=== PATIENT | female | born 1960 | race African-American/Black ===

== ENCOUNTER 2016-04-12 17:49 | Inpatient (IN) | payer MEDICARE, MEDICAID ==
[~2016-04-12] VITALS: Ht 157.5 cm; Wt 99.8 kg
[~2016-04-12 17:49] MED LIST: ACETAMINOP650 MG/20. PO; AMBIEN5 MG; BENADRYL25 MG INJ; BISCOLAX10 MG RC; CATAPRES-TTS 11 EACH TD; CATAPRES0.1 MG ORAL; CLONIDINE0.1 MG PO; HYDRALAZIN20 MG/1 ML IJ; JANUVIA25 MG PO; MORPHINE; NEPHROVITE1 TAB PO; NORCO 5-325 TA1 EACH PO; NORVASC10 MG PO; NOVOLOG100 UNIT/3 SUBQ; PHENERGAN25 MG/1 M1 IJ; RENVELA800 MG ORAL; ZOFRAN4 MG/5 ML INJ
[2016-04-12 18:17] VITALS: BP 119/74
--- NOTE | 2016-04-12 18:43 | Emergency Room Report ---
History of Present Illness General Chief Complaint: Abdominal Pain Source: Patient, Family Member Present Illness HPI 55 YO female presents to the ED C/O N/V and intermittent diarrhea x 2 weeks. pt. is on dialysis M,W,F, with hx of DM. denies fevers, reports chills. reports decreased appetite, has not eaten in 2 days. denies abdominal pain. reports mild weakness. -Denies CP, Palpitations, LOC, AMS, dizziness, Changes in Vision , Sensation, paresthesias, or a sudden severe headache. Allergies: Coded Allergies: NO KNOWN DRUG ALLERGIES (Verified Allergy, Unknown, 10/01/13) Patient History Past Medical History: see triage record Past Surgical History: none Pertinent Family History: none Last Menstrual Period: years Now: No : 0 Immunizations: UTD Reviewed Nursing Documentation: PMH: Agreed, PSxH: Agreed Nursing Documentation-PMH Past Medical History: No History, Except For Hx Cardiac Problems: Yes Hx Hypertension: Yes Hx Diabetes: Yes Hx Cancer: No Hx Gastrointestinal Problems: No Hx Dialysis: Yes Hx Neurological Problems: Yes Hx Concentration Difficulty: Yes Hx Neurologic Surgery: No Review of Systems All Other Systems: negative except mentioned in HPI Physical Exam Vital Signs Date Time Temp Pulse Resp B/P Pulse Ox O2 Delivery O2 Flow Rate FiO2 04/12/16 18:09 97.7 73 14 119/74 100 Room Air Sp02 EP Interpretation: reviewed, normal General Appearance: no apparent distress, alert, GCS 15, non-toxic Head: normocephalic, atraumatic Eyes: bilateral eye PERRL, bilateral eye normal inspection ENT: hearing grossly normal, normal pharynx, no angioedema, normal voice Neck: full range of motion, supple/symm/no masses Respiratory: chest non-tender, lungs clear, normal breath sounds, speaking full sentences Cardiovascular #1: regular rate, rhythm, no edema Cardiovascular #2: 2+ carotid (R), 2+ carotid (L), 2+ radial (R), 2+ radial (L) , 2+ dorsalis pedis (R), 2+ dorsalis pedis (L) Gastrointestinal: normal bowel sounds, non tender, soft, no guarding, no rebound Rectal: deferred Genitourinary: no CVA tenderness Musculoskeletal: back normal, gait/station normal, normal range of motion, non- tender, no calf tenderness Neurologic: alert, oriented x3, responsive, motor strength/tone normal, sensory intact, speech normal, other - Pt utilizes walker, negative increased asterixis Psychiatric: judgement/insight normal, memory normal, mood/affect normal, no suicidal/homicidal ideation, other - Pt. is slow to respond and answer questions , daughter who is bedside states this is baseline not AMS. Skin: normal color, no rash, warm/dry, well hydrated Lymphatic: no adenopathy Medical Decision Making PA Attestation Dr. murphy is my supervising Physician whom patient management has been discussed with. Diagnostic Impression: Primary Impression: Intractable nausea and vomiting Qualified Codes: R11.2 - Nausea with vomiting, unspecified Additional Impressions: Elevated serum creatinine Hypercalcemia associated with chronic dialysis ER Course Pt. presents to the ED c/o N/V x 2 weeks with subjective diarrhea, and decreased appetite. pt. has not eaten in 2 days. denies abdominal pain at this time. Ddx considered but are not limited to dehydration, electrolyte imbalance, GE, cardiac pathology, Vital signs: are WNL, pt. is afebrile H&PE are most consistent with pt. with chronic renal disease, and increased lethargy secondary to N/V, no obvious signs of dehydration. pt. is NAD ORDERS: -CBC: chronic anemia -CMP: elevated Cr at 6.5, and hypercalcemia -Lipase: WNL -CK, CK-MB, Troponin: WNL/Unremarkable -EK BPM NSR interpreted by Dr. Kahn. ED INTERVENTIONS: -4mg Zofran -DISPOSITION: at this time pt. will be admitted to Dr. Pichardo for N/V in Dialysis pt. Dr. Pichardo agreed to admit the pt. and to continue pt. care management. Labs Test 04/12/16 21:00 White Blood Count 5.9 K/UL (4.8-10.8) Red Blood Count 2.92 M/UL (4.20-5.40) Hemoglobin 8.8 G/DL (12.0-16.0) Hematocrit 29.6 % (37.0-47.0) Mean Corpuscular Volume 101 FL (80-99) Mean Corpuscular Hemoglobin 30.2 PG (27.0-31.0) Mean Corpuscular Hemoglobin Concent 29.8 G/DL (32.0-36.0) Red Cell Distribution Width 16.2 % (11.6-14.8) Platelet Count 119 K/UL (150-450) Mean Platelet Volume 6.5 FL (6.5-10.1) Neutrophils (%) (Auto) 60.5 % (45.0-75.0) Lymphocytes (%) (Auto) 28.9 % (20.0-45.0) Monocytes (%) (Auto) 8.6 % (1.0-10.0) Eosinophils (%) (Auto) 1.4 % (0.0-3.0) Basophils (%) (Auto) 0.6 % (0.0-2.0) Sodium Level 137 mEQ/L (135-145) Potassium Level 4.0 mEQ/L (3.4-4.9) Chloride Level 96 mEQ/L (98-107) Carbon Dioxide Level 25 mEQ/L (20-30) Anion Gap 16 (5-15) Blood Urea Nitrogen 15 mg/dL (7-23) Creatinine 6.6 mg/dL (0.5-0.9) Estimat Glomerular Filtration Rate 7.9 mL/min (>60) Glucose Level 84 mg/dL (74-106) Calcium Level 10.5 mg/dL (8.6-10.2) Total Bilirubin 0.3 mg/dL (0.0-1.2) Aspartate Amino Transf (AST/SGOT) 9 U/L (5-40) Alanine Aminotransferase (ALT/SGPT) < 5 U/L (3-33) Alkaline Phosphatase 99 U/L (35-104) Total Creatine Kinase 29 U/L (26-140) Creatine Kinase MB < 1.5 ng/mL (< 3.8) Creatine Kinase MB Relative Index Troponin I < 0.30 ng/mL (<=0.30) Total Protein 6.9 g/dL (6.6-8.7) Albumin 3.6 g/dL (3.5-5.2) Globulin 3.3 g/dL Albumin/Globulin Ratio 1.0 (1.0-2.7) Lipase 11 U/L (< 60) EKG Diagnostic Results EP Interpretation: Interpreted by Dr. Kahn Rate: normal - 70 PBM Rhythm: NSR ST Segments: no acute changes ASA given to the pt in ED: No PA Scribe Text Interpreted by Dr. Kahn Last Vital Signs Date Time Temp Pulse Resp B/P Pulse Ox O2 Delivery O2 Flow Rate FiO2 04/12/16 18:17 97.7 73 14 119/74 100 Room Air Disposition: ADMITTED INPATIENT Nguyen Buchanan Apr 12, 2016 18:43
[2016-04-12 21:19] LABS: BASOPHILS % (AUTO) 0.6 % (0.0-2.0); EOSINOPHILS % (AUTO) 1.4 % (0.0-3.0); LYMPHOCYTES % (AUTO) 28.9 % (20.0-45.0); MEAN CORPUSCULAR HEMOGLOBIN 30.2 PG (27.0-31.0); MEAN CORPUSCULAR HGB CONC 29.8 G/DL (32.0-36.0); MEAN CORPUSCULAR VOLUME 101 FL (80-99); MEAN PLATELET VOLUME 6.5 FL (6.5-10.1); MONOCYTES % (AUTO) 8.6 % (1.0-10.0); NEUTROPHILS % (AUTO) 60.5 % (45.0-75.0); PLATELET COUNT 119 K/UL (150-450); RED BLOOD COUNT 2.92 M/UL (4.20-5.40); RED CELL DISTRIBUTION WIDTH 16.2 % (11.6-14.8); WHITE BLOOD COUNT 5.9 K/UL (4.8-10.8)
[2016-04-12 21:41] LABS: ALANINE AMINOTRANSFERASE < 5 U/L (3-33); ANION GAP 16 (5-15); ASPARTATE AMINO TRANSFERASE 9 U/L (5-40); CALCIUM 10.5 mg/dL (8.6-10.2); CARBON DIOXIDE 25 mEQ/L (20-30); CHLORIDE 96 mEQ/L (98-107); CREATININE 6.6 mg/dL (0.5-0.9); GLOMERULAR FILTRATION RATE 7.9 mL/min (>60); HEMOLYSIS 3; LIPASE 11 U/L (< 60); SODIUM 137 mEQ/L (135-145); TOTAL PROTEIN 6.9 g/dL (6.6-8.7); TROPONIN I < 0.30 ng/mL (<=0.30)
[2016-04-12 21:52] LABS: CKMB < 1.5 ng/mL (< 3.8)
[2016-04-12] MEDS ORDERED: NKM (21:59)
[2016-04-12 22:03] VITALS: BP 101/62
[2016-04-13] VITALS: BP 127/74
[2016-04-13] MEDS ORDERED: HYDROmorphone 1mg/ml Carpuject IVP PRN (00:15)
[2016-04-13 04:00] VITALS: BP 97/51
[2016-04-13 06:42] LABS: EOSINOPHILS % (AUTO) 2.3 % (0.0-3.0); LYMPHOCYTES % (AUTO) 31.2 % (20.0-45.0); MEAN CORPUSCULAR HEMOGLOBIN 30.4 PG (27.0-31.0); MEAN CORPUSCULAR HGB CONC 29.9 G/DL (32.0-36.0); MEAN CORPUSCULAR VOLUME 102 FL (80-99); MEAN PLATELET VOLUME 6.9 FL (6.5-10.1); MONOCYTES % (AUTO) 7.4 % (1.0-10.0); NEUTROPHILS % (AUTO) 58.1 % (45.0-75.0); PLATELET COUNT 107 K/UL (150-450); RED BLOOD COUNT 2.88 M/UL (4.20-5.40); RED CELL DISTRIBUTION WIDTH 16.9 % (11.6-14.8); WHITE BLOOD COUNT 5.4 K/UL (4.8-10.8)
[2016-04-13 07:13] LABS: CALCIUM 10.6 mg/dL (8.6-10.2); CREATININE 7.4 mg/dL (0.5-0.9); GLOMERULAR FILTRATION RATE 6.9 mL/min (>60); POTASSIUM 4.3 mEQ/L (3.4-4.9)
[2016-04-13 08:45] VITALS: BP 127/76
[2016-04-13 11:51] VITALS: BP 92/54
--- NOTE | 2016-04-13 18:25 | Nephrology Progress Note ---
Assessment/Plan Problem List: (1) ESRD (end stage renal disease) on dialysis (2) Thrombocytopenia (3) Anemia in chronic kidney disease (CKD) (4) Intractable nausea and vomiting (5) Abdominal pain Plan H&P dictated # [id number] Subjective Constitutional: Denies: chills, diaphoresis, fever, malaise, no symptoms, other , weakness HEENT: Denies: blurred vision, double vision, ear discharge, ear pain, eye pain , mouth pain, mouth swelling, no symptoms, nose congestion, nose pain, other, tearing, throat pain, throat swelling Genitourinary: Denies: burning, discharge, flank pain, frequency, hematuria, incontinence, no symptoms, other, pain, urgency Neurologic/Psychiatric: Denies: anxiety, depressed, emotional problems, headache, no symptoms, numbness, other, paresthesia, pre-existing deficit, seizure, tingling, tremors, weakness Objective Objective Last 24 Hour Vital Signs Date Time Temp Pulse Resp B/P Pulse Ox O2 Delivery O2 Flow Rate FiO2 04/13/16 11:51 97.3 76 16 92/54 96 Room Air 04/13/16 08:45 97.0 82 16 127/76 100 Room Air 04/13/16 04:00 96.8 74 20 97/51 97 Room Air 04/13/16 00:00 96.3 76 20 127/74 100 Room Air 04/12/16 22:30 98.5 76 16 101/62 97 Room Air 04/12/16 22:03 98.5 76 16 101/62 97 Room Air Intake and Output 04/12/16 04/13/16 19:00 07:00 Intake Total 0 ml Output Total 0 ml Balance 0 ml Intake Oral 0 ml Output Urine Total 0 ml # Bowel Movements 3 Laboratory Tests 04/12/16 21:00: White Blood Count 5.9, Red Blood Count 2.92L, Hemoglobin 8.8L, Hematocrit 29.6L , Mean Corpuscular Volume 101H, Mean Corpuscular Hemoglobin 30.2, Mean Corpuscular Hemoglobin Concent 29.8L, Red Cell Distribution Width 16.2H, Platelet Count 119L, Mean Platelet Volume 6.5, Neutrophils (%) (Auto) 60.5, Lymphocytes (%) (Auto) 28.9, Monocytes (%) (Auto) 8.6, Eosinophils (%) (Auto) 1.4, Basophils (%) (Auto) 0.6, Sodium Level 137, Potassium Level 4.0, Chloride Level 96L, Carbon Dioxide Level 25, Anion Gap 16H, Blood Urea Nitrogen 15, Creatinine 6.6H, Estimat Glomerular Filtration Rate 7.9, Glucose Level 84, Calcium Level 10.5H, Total Bilirubin 0.3, Aspartate Amino Transf (AST/SGOT) 9, Alanine Aminotransferase (ALT/SGPT) < 5, Alkaline Phosphatase 99, Total Creatine Kinase 29, Creatine Kinase MB < 1.5, Creatine Kinase MB Relative Index , Troponin I < 0.30, Total Protein 6.9, Albumin 3.6, Globulin 3.3, Albumin/ Globulin Ratio 1.0, Lipase 11 04/13/16 05:05: White Blood Count 5.4, Red Blood Count 2.88L, Hemoglobin 8.8L, Hematocrit 29.3L , Mean Corpuscular Volume 102H, Mean Corpuscular Hemoglobin 30.4, Mean Corpuscular Hemoglobin Concent 29.9L, Red Cell Distribution Width 16.9H, Platelet Count 107L, Mean Platelet Volume 6.9, Neutrophils (%) (Auto) 58.1, Lymphocytes (%) (Auto) 31.2, Monocytes (%) (Auto) 7.4, Eosinophils (%) (Auto) 2.3, Basophils (%) (Auto) 1.0, Sodium Level 141, Potassium Level 4.3, Chloride Level 100, Carbon Dioxide Level 23, Anion Gap 18H, Blood Urea Nitrogen 17, Creatinine 7.4H, Estimat Glomerular Filtration Rate 6.9, Glucose Level 64L, Calcium Level 10.6H Height (Feet): 5 Height (Inches): 2.00 Weight (Pounds): 220 General Appearance: no apparent distress, alert EENT: normal ENT inspection Neck: normal alignment, supple Cardiovascular: normal peripheral pulses, regular rhythm, no JVD Respiratory/Chest: lungs clear, normal breath sounds Extremities: non-tender, normal inspection Neurologic: no motor/sensory deficits, alert, oriented x 3, responsive, normal mood/affect Rach Lima N.P. Apr 13, 2016 18:25
[2016-04-13] MEDS ORDERED: LORazepam 1mg tab ORAL PRN (18:45)
[2016-04-13] MEDS: Epogen (for ESRD on dialysis) SUBQ SCH (21:36)
[2016-04-14] VITALS: BP 88/55
--- NOTE | 2016-04-14 00:27 | HX and Phyl Repo 2 Sig ---
DATE OF ADMISSION: 04/12/2016 HISTORY OF PRESENT ILLNESS: The patient is a 55-year-old female who presented to the ED yesterday, 04/12/2016, with the complaint of abdominal pain. According to her, she stated that she had stomach flu. She stated that she threw up at home 2 times and she had abdominal pain, which is crampy in nature, 05/18. She is a hemodialysis patient who is getting dialysis, Mondays, Wednesdays, and Fridays. Also history of hypertension and hypercoagulation. She denies any fever. No diarrhea. No chest pain. No shortness of breath. PAST MEDICAL HISTORY: As stated in History of Present Illness. ALLERGIES: She has no known allergies. MEDICATIONS: 1. Clonidine 0.1 mg 4 times a day. 2. Tylenol 650 mg as needed. 3. Renvela 800 mg p.o. t.i.d. SOCIAL HISTORY: The patient denies illicit drug use. No smoking. No history of alcohol use. FAMILY HISTORY: Noncontributory. REVIEW OF SYSTEMS: A full 12-point review of systems was reviewed with the patient and positive as stated in History of Present Illness. PHYSICAL EXAMINATION: VITAL SIGNS: Blood pressure 92/54, heart rate is 76, temperature is 97.3 degrees, O2 saturation is 96% on room air, and respirations 16. HEENT: Head is normocephalic and atraumatic. Pupils are equal, round, and reactive to light and accommodation. NECK: Supple. No jugular venous distention noted. LUNGS: Clear bilaterally. CARDIOVASCULAR: Regular rate and rhythm. No murmur. No gallop. ABDOMEN: Soft and nontender. Positive bowel sounds in all 4 quadrants. EXTREMITIES: No edema. No cyanosis. No clubbing. NEUROLOGIC: The patient is awake, alert, and oriented with no focal deficits. LABORATORY DATA: CBC shows white count 5.4, hemoglobin 8.8, hematocrit 29.3, and platelet count of 107,000. Chemistry shows sodium 141, potassium 4.3, chloride is 100, bicarbonate 23, BUN 17, creatinine 7.4, glucose is 64, and calcium is 10.6. ASSESSMENT: 1. Nausea and vomiting. 2. Abdominal pain. 3. End-stage renal disease, on hemodialysis. 4. Anemia of chronic kidney disease. 5. Thrombocytopenia. PLAN: We will continue on hemodialysis, Mondays, Wednesdays, and Fridays. The patient's last hemodialysis was on Saturday. We will get the patient to be dialyzed tonight. Monitor lytes. Monitor H and H, and transfuse as needed. Obtain a gastroenterology consult. Hematology consult as well. We will monitor lytes. Pain management. Will give Zofran p.r.n. vomiting. We will monitor patient's overall response to treatment. Jhoan Hamm M.D. Rach Lima DR: ERIKA JOB#: [id number] CC:
--- NOTE | 2016-04-14 00:37 | Consultation ---
DATE OF CONSULTATION: 04/13/2016 TIME SEEN: 1 p.m. CONSULTING PHYSICIAN: Richar Prince D.O. CHIEF COMPLAINT: Nausea and vomiting for two weeks. BRIEF HISTORY: This is a 55-year-old female, who presented to [facility] yesterday with history of increased nausea and vomiting for two weeks intermittently. The patient does have a history of renal failure, on dialysis, and the patient was admitted to medical floor for the above-mentioned diagnosis. Currently, sleeping in bed and refusing to answer questions. REVIEW OF SYSTEMS: Not available. PAST MEDICAL HISTORY: ESRD, hypertension, diabetes. MEDICATIONS: Dilaudid, Zofran, and IV fluids. ALLERGIES: Denies. SOCIAL HISTORY: No smoking. No alcohol. No intravenous drug abuse. FAMILY HISTORY: Noncontributory. REVIEW OF SYSTEMS: Unavailable. PHYSICAL EXAMINATION: GENERAL: Sleeping in bed, not talking much. VITAL SIGNS: Temperature is 97 degrees, pulse 96, respirations 16, and blood pressure 92/54. CARDIOVASCULAR: No murmur. LUNGS: Poor air exchange. ABDOMEN: Bowel sounds are positive. Nontender and nondistended. EXTREMITIES: No cyanosis, clubbing, or edema. NEUROLOGIC: The patient is moving all extremities. Slightly weak. LABORATORY DATA: Labs at this time show hemoglobin 8.8 and platelets 107,000. Otherwise, CBC is normal. BMP, BUN and creatinine is 17 and 7.4 and glucose is 64. ASSESSMENT: 1. End-stage renal disease. 2. Intractable vomiting. 3. Hypertension. 4. Diabetes. 5. Anemia. PLAN: 1. Continue premedications. 2. OT, PT, and dietary evaluation. 3. CBC and BMP in the morning. 4. Dialysis. 5. Zofran p.r.n. 6. Blood pressure and blood sugar control. 7. We will continue to follow this patient medically. Richar Prince D.O. DR: MARIFER JOB#: [id number] CC:
[2016-04-14 06:00] VITALS: BP 106/61
[2016-04-14 07:19] LABS: BASOPHILS % (AUTO) 0.9 % (0.0-2.0); EOSINOPHILS % (AUTO) 4.4 % (0.0-3.0); LYMPHOCYTES % (AUTO) 32.1 % (20.0-45.0); MEAN CORPUSCULAR HEMOGLOBIN 30.5 PG (27.0-31.0); MEAN CORPUSCULAR HGB CONC 30.3 G/DL (32.0-36.0); MEAN CORPUSCULAR VOLUME 101 FL (80-99); MEAN PLATELET VOLUME 6.7 FL (6.5-10.1); MONOCYTES % (AUTO) 11.5 % (1.0-10.0); NEUTROPHILS % (AUTO) 51.2 % (45.0-75.0); PLATELET COUNT 127 K/UL (150-450); RED BLOOD COUNT 3.24 M/UL (4.20-5.40); RED CELL DISTRIBUTION WIDTH 17.2 % (11.6-14.8); WHITE BLOOD COUNT 5.8 K/UL (4.8-10.8)
[2016-04-14 07:22] LABS: CALCIUM 10.2 mg/dL (8.6-10.2); CREATININE 8.8 mg/dL (0.5-0.9); GLOMERULAR FILTRATION RATE 5.7 mL/min (>60); POTASSIUM 4.1 mEQ/L (3.4-4.9)
[2016-04-14 07:40] LABS: MAGNESIUM 2.2 mg/dL (1.7-2.5); PHOSPHORUS 2.9 mg/dL (2.5-4.8)
--- NOTE | 2016-04-14 08:25 | General Progress Note ---
Assessment/Plan Problem List: (1) HTN (hypertension) ICD Codes: I10 - Essential (primary) hypertension SNOMED: 56367444 (2) Diabetes ICD Codes: E11.9 - Type 2 diabetes mellitus without complications SNOMED: 56968824 (3) ESRD (end stage renal disease) on dialysis ICD Codes: N18.6 - End stage renal disease; Z99.2 - Dependence on renal dialysis SNOMED: 225926011 (4) Intractable nausea and vomiting ICD Codes: R11.2 - Nausea with vomiting, unspecified SNOMED: 055288391, [id number] Qualifiers: Qualified Codes: R11.2 - Nausea with vomiting, unspecified (5) Anemia in chronic kidney disease (CKD) ICD Codes: N18.9 - Chronic kidney disease, unspecified; D63.1 - Anemia in chronic kidney disease SNOMED: 470619258, 100359889 Status: stable, progressing, tolerating diet Assessment/Plan ot pt diet dialysis cbc bmp am Subjective Constitutional: Reports: weakness Allergies: Coded Allergies: NO KNOWN DRUG ALLERGIES (Verified Allergy, Unknown, 10/01/13) All Systems: reviewed and negative except above Subjective sitting on bed calm Objective Last 24 Hour Vital Signs Date Time Temp Pulse Resp B/P Pulse Ox O2 Delivery O2 Flow Rate FiO2 04/14/16 06:00 97.7 77 20 106/61 100 Room Air 04/14/16 00:00 97.3 66 20 88/55 100 Room Air 04/13/16 11:51 97.3 76 16 92/54 96 Room Air 04/13/16 08:45 97.0 82 16 127/76 100 Room Air Intake and Output 04/13/16 04/14/16 19:00 07:00 Intake Total 900 ml 720 ml Output Total 0 ml Balance 900 ml 720 ml Intake Oral 900 ml 720 ml Output Urine Total 0 ml # Voids 2 5 # Bowel Movements 4 1 Laboratory Tests 04/14/16 06:00: White Blood Count 5.8, Red Blood Count 3.24L, Hemoglobin 9.9L, Hematocrit 32.7L , Mean Corpuscular Volume 101H, Mean Corpuscular Hemoglobin 30.5, Mean Corpuscular Hemoglobin Concent 30.3L, Red Cell Distribution Width 17.2H, Platelet Count 127L, Mean Platelet Volume 6.7, Neutrophils (%) (Auto) 51.2, Lymphocytes (%) (Auto) 32.1, Monocytes (%) (Auto) 11.5H, Eosinophils (%) (Auto) 4.4H, Basophils (%) (Auto) 0.9, Sodium Level 138, Potassium Level 4.1, Chloride Level 97L, Carbon Dioxide Level 28, Anion Gap 13, Blood Urea Nitrogen 23, Creatinine 8.8H, Estimat Glomerular Filtration Rate 5.7, Glucose Level 85, Calcium Level 10.2, Phosphorus Level 2.9, Magnesium Level 2.2, Iron Level 56, Total Iron Binding Capacity 173L, Percent Iron Saturation 32, Unsaturated Iron Binding 117 Height (Feet): 5 Height (Inches): 2.00 Weight (Pounds): 220 General Appearance: lethargic EENT: normal ENT inspection Neck: normal alignment Cardiovascular: normal peripheral pulses, normal rate, regular rhythm Respiratory/Chest: chest wall non-tender, lungs clear, normal breath sounds Abdomen: normal bowel sounds, non tender, soft Extremities: normal inspection Edema: no edema noted Arm (L), no edema noted Arm (R), no edema noted Leg (L), no edema noted Leg (R), no edema noted Pedal (L), no edema noted Pedal (R), no edema noted Generalized Neurologic: responsive, motor weakness Skin: normal pigmentation, warm/dry MANI RAUSCH Apr 14, 2016 08:25
[2016-04-14 08:48] VITALS: BP 131/83
--- NOTE | 2016-04-14 11:41 | Nephrology Progress Note ---
Assessment/Plan Problem List: (1) ESRD (end stage renal disease) on dialysis (2) Anemia in chronic kidney disease (CKD) (3) Diabetes (4) HTN (hypertension) (5) Abdominal pain Plan HD as scheduled. Monitor labs. Subjective Subjective refused HD early am but completed HD at a later time when RN returned. no new c/ o. tolerating diet. no n/v. Objective Objective Last 24 Hour Vital Signs Date Time Temp Pulse Resp B/P Pulse Ox O2 Delivery O2 Flow Rate FiO2 04/14/16 08:48 97.7 79 14 131/83 100 Nasal Cannula 04/14/16 06:00 97.7 77 20 106/61 100 Room Air 04/14/16 00:00 97.3 66 20 88/55 100 Room Air 04/13/16 11:51 97.3 76 16 92/54 96 Room Air Intake and Output 04/13/16 04/14/16 19:00 07:00 Intake Total 900 ml 720 ml Output Total 0 ml Balance 900 ml 720 ml Intake Oral 900 ml 720 ml Output Urine Total 0 ml # Voids 2 5 # Bowel Movements 4 1 Laboratory Tests 04/14/16 06:00: White Blood Count 5.8, Red Blood Count 3.24L, Hemoglobin 9.9L, Hematocrit 32.7L , Mean Corpuscular Volume 101H, Mean Corpuscular Hemoglobin 30.5, Mean Corpuscular Hemoglobin Concent 30.3L, Red Cell Distribution Width 17.2H, Platelet Count 127L, Mean Platelet Volume 6.7, Neutrophils (%) (Auto) 51.2, Lymphocytes (%) (Auto) 32.1, Monocytes (%) (Auto) 11.5H, Eosinophils (%) (Auto) 4.4H, Basophils (%) (Auto) 0.9, Sodium Level 138, Potassium Level 4.1, Chloride Level 97L, Carbon Dioxide Level 28, Anion Gap 13, Blood Urea Nitrogen 23, Creatinine 8.8H, Estimat Glomerular Filtration Rate 5.7, Glucose Level 85, Calcium Level 10.2, Phosphorus Level 2.9, Magnesium Level 2.2, Iron Level 56, Total Iron Binding Capacity 173L, Percent Iron Saturation 32, Unsaturated Iron Binding 117 Height (Feet): 5 Height (Inches): 2.00 Weight (Pounds): 220 General Appearance: no apparent distress Cardiovascular: normal rate, regular rhythm Respiratory/Chest: lungs clear Abdomen: normal bowel sounds, non tender, soft Extremities: trace edema Neurologic: alert, oriented x 3 DONNA WYNN Apr 14, 2016 11:41
[2016-04-14 11:49] VITALS: BP 126/74
[2016-04-14 16:19] VITALS: BP 131/69
[2016-04-14] MEDS: Docusate 100mg cap ORAL SCH (17:47)
--- NOTE | 2016-04-14 17:47 | Progress Note ---
DATE: 04/14/2016 HISTORY OF PRESENT ILLNESS: This is a 55-year-old female who has past medical history of end-stage renal disease, hypertension, and diabetes who came to the emergency room for having generalized weakness, intractable nausea, and vomiting. The patient is currently feeling better. No fever. No chills. PAST MEDICAL HISTORY: Hypertension; diabetes; and end-stage renal disease, on hemodialysis Saturday, Saturday, and Saturday. PHYSICAL EXAMINATION: GENERAL: This is an elderly female, who is awake, walking. Abdominal pain is improving. VITAL SIGNS: Blood pressure 140/90, pulse 60, and respirations 18. SKIN: Good skin turgor. HEENT: NAD. CHEST: Bilaterally clear. CARDIOVASCULAR: Regular rhythm. No gallop. No murmur. ABDOMEN: Distended. Positive bowel sounds. Mild tenderness. EXTREMITIES: No CCE. NEUROLOGIC: Generalized weakness. ASSESSMENT: 1. Abdominal pain. 2. Nausea and vomiting. 3. Dehydration. 4. End-stage renal disease. 5. Diabetes, well controlled. 6. Hypertension. PLAN: We will continue currently clear liquid diet. We will start her on Zofran. We will get GI consult. Continue hemodialysis. Discussed with Dr. Cordero. Discussed with GI. Oj Dias M.D. DR: ADINA JOB#: [id number] CC:
[2016-04-14 20:16] VITALS: BP 119/64
[2016-04-14] MEDS: Miralax 17gm pkt ORAL SCH (21:00)
--- NOTE | 2016-04-14 22:47 | Consultation ---
DATE OF CONSULTATION: 04/14/2016 CARDIOLOGY CONSULTATION CONSULTING PHYSICIAN: Norberto Lind M.D. REFERRING PHYSICIAN: Jhoan Hamm M.D. REASON FOR CONSULTATION: Management of hypotension. HISTORY OF PRESENT ILLNESS: The patient is a very pleasant 55-year-old lady who presents to the emergency department on 04/12/2016 with complaint of abdominal pain, nausea, and vomiting. On arrival to the emergency department, her blood pressure was 119/74 mmHg, however, she dropped her blood pressure on 04/13/2016 and she continued to be until this morning. Next day after admission, Cardiology consultation was made at the request of Dr. Jhoan Hamm for evaluation of hypotension. The patient currently denies any chest pain or shortness of breath. She denies any prior history of coronary artery disease or congestive heart failure. PAST MEDICAL HISTORY: Including end-stage renal disease, history of diabetes mellitus, history of hypertension, as well as cardiac disease. PAST SURGICAL HISTORY: None. ALLERGIES: No known drug allergies. MEDICATIONS: Clonidine 0.1 mg four times a day, Tylenol 650 mg every four hours as needed, and Renvela 800 mg three times daily. FAMILY HISTORY: No premature coronary artery disease in first-degree relatives. SOCIAL HISTORY: Denies any history of tobacco, alcohol, or illicit drug use. REVIEW OF SYSTEMS: HEENT: Denies any headache, diplopia, or blurred vision. Constitutional: Complains of generalized weakness and fatigue especially after dialysis. Denies any fever or chills at this time. Pulmonary: Denies any cough, hemoptysis, or wheezing. Gastrointestinal: Complains of abdominal pain, described as crampy pain with associated nausea and vomiting. No gastrointestinal bleed. Genitourinary: Denies any hematuria or dysuria. She has end-stage renal disease on hemodialysis on a regular basis. Extremities: Denies any leg edema, clubbing, or cyanosis. Neurologic: Denies any motor dysfunction, sensory deficit, or altered speech. PHYSICAL EXAMINATION: VITAL SIGNS: Blood pressure was 92/54, heart rate was 76, O2 saturation 96% on room air, temperature 97.3 degrees Fahrenheit, and respirations 16. GENERAL: The patient is a very pleasant 55-year-old female, who appears to be somewhat tired and fatigued, just finished the dialysis. HEENT: Atraumatic and normocephalic. Anicteric. Pupils are equal, round, and reactive to light and accommodation. Extraocular muscles intact. NECK: JVP is less than 5 cm. No carotid bruits. Carotid upstrokes 2+ bilaterally. CARDIOVASCULAR: Normal S1 and S2. A 2/6 mid systolic murmur at the left sternal border. PMI is at fourth intercostal space at the left midclavicular line. LUNGS: Clear to auscultation bilaterally. ABDOMEN: Soft, nontender, and nondistended. No hepatosplenomegaly. Positivebowel sounds. EXTREMITIES: No evidence of edema, clubbing, or cyanosis. LABORATORY AND DIAGNOSTIC DATA: Laboratory findings, WBC 5.9, hemoglobin of 8.8, hematocrit 39.6, and platelet count is 119,000. Sodium 137, potassium 4.0, chloride 96, bicarbonate 25, BUN of 15, creatinine 6.6, glucose is 84, and calcium is 10.5. Troponin I is less than 0.3. A 12-lead electrocardiogram, not available in the chart. ASSESSMENT AND PLAN: The patient is a very unfortunate 55-year-old female, who was seen in Cardiology consultation at Dr. Hamm's request. 1. Hypotension. We would like to decrease the withdrawal of volume during hemodialysis. We will speak with the patient's nurse and dialysis nurse. The patient will benefit from small loading dose and normal saline mL. 2. Anemia. Follow up with Gastroenterology consult. This might be secondary to end-stage renal disease and yet be chronic normocytic, normochromic type. 3. Thrombocytopenia. 4. End-stage renal disease, on three days hemodialysis. I would like to obtain 2D echocardiography for assessment of left ventricular systolic and diastolic function. Further therapeutic and diagnostic decision will be based on the results of the echocardiography. I would like to thank, Dr. Hamm, for allowing me to participate in the care of this patient. Norberto Lind M.D. DR: MAXIMILIAN JOB#: [id number] CC:
[2016-04-15] VITALS: BP 127/72
--- NOTE | 2016-04-15 00:07 | Consultation ---
DATE OF CONSULTATION: 04/14/2016 CHIEF COMPLAINT: Nausea, vomiting, and abdominal pain. HISTORY OF PRESENT ILLNESS: This is a very pleasant unfortunate 55-year-old female with a past medical history of end-stage renal disease, on hemodialysis and history of diabetes, admitted to hospital for complaints of nausea and vomiting. The patient denies any hematemesis. No dysphagia. No odynophagia. No melena. No hematochezia. The patient had a bowel movement, but unfortunately, it was a little bit hard. PAST MEDICAL HISTORY: 1. History of end-stage renal disease, on hemodialysis. 2. Anemia. 3. Diabetes. 4. Hypertension. PAST SURGICAL HISTORY: AV shunt placement for hemodialysis. ALLERGIES: No known drug allergy. MEDICATIONS: See medication reconciliation list. SOCIAL HISTORY: The patient denies any tobacco, alcohol, or drug abuse. FAMILY HISTORY: Noncontributory. REVIEW OF SYSTEMS: A 10-point review of system was performed and pertinent positives in history of present illness. PHYSICAL EXAMINATION: VITAL SIGNS: Temperature 97.9 degrees, pulse 85, respirations 20, and blood pressure 126/74. HEENT: Normocephalic and atraumatic. Mild pale conjunctiva. NECK: Supple. No evidence of lymphadenopathy. CARDIOVASCULAR: Regular rhythm. Plus S1 and S2. LUNGS: Clear breath sounds bilaterally. ABDOMEN: Soft and mildly distended. Mildly tympanic to percussion. No rebound. No guarding. No peritoneal sign. EXTREMITIES: No cyanosis. No clubbing. No edema. LABORATORY DATA: White count is 5.8, hemoglobin 9.9, hematocrit 32, and platelet count is 127,000. ASSESSMENT: 1. Nausea. 2. Vomiting. 3. Anemia. 4. Chronic renal disease, on hemodialysis. 5. Diabetes. PLAN: At this time, the patient does not have any current nausea or vomiting. According to her, she is tolerating her diet. Plan will be to start the patient on Colace and MiraLax for constipation. We will order a KUB to rule out bowel obstruction. No CVA to stool impaction. We will consider adding Reglan if the patient has persistent vomiting. Repeat laboratories for tomorrow including CBC, CMP, amylase, and lipase. Jose Enrique Warner Greer DR: GUILLE JOB#: [id number] CC:
[2016-04-15 04:00] VITALS: BP 137/69
[2016-04-15 07:22] LABS: EOSINOPHILS % (AUTO) 4.2 % (0.0-3.0); LYMPHOCYTES % (AUTO) 40.5 % (20.0-45.0); MEAN CORPUSCULAR HEMOGLOBIN 29.9 PG (27.0-31.0); MEAN CORPUSCULAR HGB CONC 29.6 G/DL (32.0-36.0); MEAN CORPUSCULAR VOLUME 101 FL (80-99); MONOCYTES % (AUTO) 10.2 % (1.0-10.0); NEUTROPHILS % (AUTO) 44.1 % (45.0-75.0); PLATELET COUNT 105 K/UL (150-450); RED BLOOD COUNT 3.17 M/UL (4.20-5.40); RED CELL DISTRIBUTION WIDTH 17.3 % (11.6-14.8); WHITE BLOOD COUNT 4.6 K/UL (4.8-10.8)
--- NOTE | 2016-04-15 08:08 | General Progress Note ---
Assessment/Plan Problem List: (1) HTN (hypertension) ICD Codes: I10 - Essential (primary) hypertension SNOMED: 51412684 (2) Diabetes ICD Codes: E11.9 - Type 2 diabetes mellitus without complications SNOMED: 24265867 (3) ESRD (end stage renal disease) on dialysis ICD Codes: N18.6 - End stage renal disease; Z99.2 - Dependence on renal dialysis SNOMED: 046619996 (4) Intractable nausea and vomiting ICD Codes: R11.2 - Nausea with vomiting, unspecified SNOMED: 567170172, 392557117 Qualifiers: Qualified Codes: R11.2 - Nausea with vomiting, unspecified (5) Anemia in chronic kidney disease (CKD) ICD Codes: N18.9 - Chronic kidney disease, unspecified; D63.1 - Anemia in chronic kidney disease SNOMED: 760826468, 999742074 Status: stable, progressing, tolerating diet Assessment/Plan ot pt diet dialysis cbc bmp am Subjective Constitutional: Reports: weakness Allergies: Coded Allergies: NO KNOWN DRUG ALLERGIES (Verified Allergy, Unknown, 10/01/13) All Systems: reviewed and negative except above Subjective sleepy calm Objective Last 24 Hour Vital Signs Date Time Temp Pulse Resp B/P Pulse Ox O2 Delivery O2 Flow Rate FiO2 04/15/16 04:00 98.8 87 20 137/69 95 Room Air 04/15/16 00:00 97.9 87 20 127/72 97 Room Air 04/14/16 20:16 98.3 90 20 119/64 91 Room Air 04/14/16 16:19 97.0 78 20 131/69 98 Room Air 04/14/16 15:45 Room Air 04/14/16 12:45 Room Air 04/14/16 11:49 97.8 84 20 126/74 100 Room Air 04/14/16 08:48 97.7 79 14 131/83 100 Nasal Cannula Intake and Output 04/14/16 04/15/16 19:00 07:00 Intake Total 1780 ml 440 ml Output Total 1800 ml Balance -20 ml 440 ml Intake Oral 1780 ml 440 ml Hemodialysis UF 1800 ml # Voids 3 Laboratory Tests 04/15/16 05:30: White Blood Count 4.6L, Red Blood Count 3.17L, Hemoglobin 9.5L, Hematocrit 32.1L , Mean Corpuscular Volume 101H, Mean Corpuscular Hemoglobin 29.9, Mean Corpuscular Hemoglobin Concent 29.6L, Red Cell Distribution Width 17.3H, Platelet Count 105L, Mean Platelet Volume 7.0, Neutrophils (%) (Auto) 44.1L, Lymphocytes (%) (Auto) 40.5, Monocytes (%) (Auto) 10.2H, Eosinophils (%) (Auto) 4.2H, Basophils (%) (Auto) 1.0, Sodium Level [Pending], Potassium Level [Pending ], Chloride Level [Pending], Carbon Dioxide Level [Pending], Blood Urea Nitrogen [Pending], Creatinine [Pending], Estimat Glomerular Filtration Rate [ Pending], Glucose Level [Pending], Calcium Level [Pending], Total Bilirubin [ Pending], Aspartate Amino Transf (AST/SGOT) [Pending], Alanine Aminotransferase (ALT/SGPT) [Pending], Alkaline Phosphatase [Pending], Total Protein [Pending], Albumin [Pending], Globulin [Pending], Amylase Level [Pending], Lipase [Pending] Height (Feet): 5 Height (Inches): 2.00 Weight (Pounds): 220 General Appearance: lethargic EENT: normal ENT inspection Neck: normal alignment Cardiovascular: normal peripheral pulses, normal rate, regular rhythm Respiratory/Chest: chest wall non-tender, lungs clear, normal breath sounds Abdomen: normal bowel sounds, non tender, soft Extremities: normal inspection Edema: no edema noted Arm (L), no edema noted Arm (R), no edema noted Leg (L), no edema noted Leg (R), no edema noted Pedal (L), no edema noted Pedal (R), no edema noted Generalized Neurologic: responsive, motor weakness Skin: normal pigmentation, warm/dry MANI RAUSCH Apr 15, 2016 08:08
[2016-04-15] MEDS: Docusate 100mg cap ORAL SCH ×3 (08:30→19:29)
[2016-04-15 08:34] LABS: ALBUMIN/GLOBULIN RATIO 1.3 (1.0-2.7); CALCIUM 9.4 mg/dL (8.6-10.2); CREATININE 7.1 mg/dL (0.5-0.9); GLOMERULAR FILTRATION RATE 7.3 mL/min (>60); POTASSIUM 4.3 mEQ/L (3.4-4.9); TOTAL PROTEIN 6.3 g/dL (6.6-8.7)
[2016-04-15 08:38] VITALS: BP 131/81
[2016-04-15 09:03] LABS: AMYLASE 48 U/L (10-110); LIPASE 47 U/L (< 60)
--- NOTE | 2016-04-15 11:17 | Nephrology Progress Note ---
Assessment/Plan Problem List: (1) ESRD (end stage renal disease) on dialysis (2) Anemia in chronic kidney disease (CKD) (3) Diabetes (4) HTN (hypertension) (5) Abdominal pain Plan HD as scheduled. Monitor labs. GI and Cardio following. Subjective Subjective getting echo done now. no new c/o. upset about early am lab draw. Objective Objective Last 24 Hour Vital Signs Date Time Temp Pulse Resp B/P Pulse Ox O2 Delivery O2 Flow Rate FiO2 04/15/16 08:38 97.3 82 16 131/81 100 04/15/16 04:00 98.8 87 20 137/69 95 Room Air 04/15/16 00:00 97.9 87 20 127/72 97 Room Air 04/14/16 20:16 98.3 90 20 119/64 91 Room Air 04/14/16 16:19 97.0 78 20 131/69 98 Room Air 04/14/16 15:45 Room Air 04/14/16 12:45 Room Air 04/14/16 11:49 97.8 84 20 126/74 100 Room Air Intake and Output 04/14/16 04/15/16 19:00 07:00 Intake Total 1780 ml 440 ml Output Total 1800 ml Balance -20 ml 440 ml Intake Oral 1780 ml 440 ml Hemodialysis UF 1800 ml # Voids 3 Laboratory Tests 04/15/16 05:30: White Blood Count 4.6L, Red Blood Count 3.17L, Hemoglobin 9.5L, Hematocrit 32.1L , Mean Corpuscular Volume 101H, Mean Corpuscular Hemoglobin 29.9, Mean Corpuscular Hemoglobin Concent 29.6L, Red Cell Distribution Width 17.3H, Platelet Count 105L, Mean Platelet Volume 7.0, Neutrophils (%) (Auto) 44.1L, Lymphocytes (%) (Auto) 40.5, Monocytes (%) (Auto) 10.2H, Eosinophils (%) (Auto) 4.2H, Basophils (%) (Auto) 1.0, Sodium Level 135, Potassium Level 4.3, Chloride Level 91L, Carbon Dioxide Level 28, Anion Gap 16H, Blood Urea Nitrogen 18, Creatinine 7.1H, Estimat Glomerular Filtration Rate 7.3, Glucose Level 91, Calcium Level 9.4, Total Bilirubin 0.4, Aspartate Amino Transf (AST/SGOT) 16, Alanine Aminotransferase (ALT/SGPT) 7, Alkaline Phosphatase 101, Total Protein 6.3L, Albumin 3.6, Globulin 2.7, Albumin/Globulin Ratio 1.3, Amylase Level 48, Lipase 47 Height (Feet): 5 Height (Inches): 2.00 Weight (Pounds): 220 General Appearance: no apparent distress Cardiovascular: normal rate, regular rhythm Respiratory/Chest: lungs clear Abdomen: non tender, soft Extremities: non-pitting Neurologic: alert, oriented x 3 DONNA WYNN Apr 15, 2016 11:17
[2016-04-15 12:01] VITALS: BP 126/78
[2016-04-15 16:00] VITALS: BP 114/60
--- NOTE | 2016-04-15 16:20 | Cardiology Report ---
APPROVED REPORT EXAM: Two-dimensional and M-mode echocardiogram with Doppler and color Doppler. INDICATION Abdominal pain M-Mode DIMENSIONS IVSd0.8 (0.7-1.1cm)Left Atrium (MM)2.0 (1.6-4.0cm) LVDd4.4 (3.5-5.6cm)Aortic Root1.9 (2.0-3.7cm) PWd1.1 (0.7-1.1cm)Aortic Cusp Exc.0.8 (1.5-2.0cm) LVDs2.7 (2.5-4.0cm) PWs1.1 cm Technically difficult study due to poor acoustic windows. Normal left ventricular chamber size, systolic function and wall motion. Left ventricular ejection fraction estimated to be 60-65 %. No evidence of left ventricular hypertrophy. Small posterior pericardial fat or effusion. Right cardiac chamber sizes are within normal limits. Focal aortic valve sclerosis with adequate cusp excursion Mildly thickened mitral valve leaflets with normal excursion. Mild mitral annulus and aortic root calcification. Pulmonic valve not well visualized. Normal tricuspid valve structure. IVC is normal in size with physiologic collapse. A color flow and spectral Doppler study was performed and revealed: No aortic regurgitation. Trace mitral regurgitation. Left ventricular diastolic dysfunction grade 1. Mild tricuspid regurgitation.
[2016-04-15 19:00] VITALS: BP 103/56
[2016-04-15] MEDS: Miralax 17gm pkt ORAL SCH (20:47)
[2016-04-16] VITALS: BP 122/52
[2016-04-16 04:00] VITALS: BP 97/57
[2016-04-16 08:00] VITALS: BP 101/55
[2016-04-16] MEDS: Docusate 100mg cap ORAL SCH ×3 (08:54→17:43)
[2016-04-16 09:38] LABS: CALCIUM 9.5 mg/dL (8.6-10.2); CREATININE 8.4 mg/dL (0.5-0.9); GLOMERULAR FILTRATION RATE 5.9 mL/min (>60); POTASSIUM 3.8 mEQ/L (3.4-4.9)
[2016-04-16 09:50] LABS: BASOPHILS % (AUTO) 0.5 % (0.0-2.0); LYMPHOCYTES % (AUTO) 35.2 % (20.0-45.0); MEAN CORPUSCULAR HGB CONC 30.1 G/DL (32.0-36.0); MEAN CORPUSCULAR VOLUME 99 FL (80-99); MONOCYTES % (AUTO) 10.8 % (1.0-10.0); NEUTROPHILS % (AUTO) 49.6 % (45.0-75.0); PLATELET COUNT 108 K/UL (150-450); RED BLOOD COUNT 2.99 M/UL (4.20-5.40); RED CELL DISTRIBUTION WIDTH 17.4 % (11.6-14.8)
[2016-04-16 12:00] VITALS: BP 109/58
--- NOTE | 2016-04-16 13:14 | GI Progress Note ---
Assessment/Plan Problems: (1) Diabetes ICD Codes: E11.9 - Type 2 diabetes mellitus without complications SNOMED: 02473385 (2) Anemia in chronic kidney disease (CKD) ICD Codes: N18.9 - Chronic kidney disease, unspecified; D63.1 - Anemia in chronic kidney disease SNOMED: 807661032, 935324715 (3) Abdominal pain ICD Codes: R10.9 - Unspecified abdominal pain SNOMED: 26309068 (4) Intractable nausea and vomiting ICD Codes: R11.2 - Nausea with vomiting, unspecified SNOMED: 756952943, 228432176 Qualifiers: Qualified Codes: R11.2 - Nausea with vomiting, unspecified (5) Thrombocytopenia ICD Codes: D69.6 - Thrombocytopenia, unspecified SNOMED: 015412865 Status: stable Status Narrative Discussed with Dr. Greer. Assessment/Plan symptomatic treatment at this time renal diet bowel regime fu KUB r/o bowel obs zofran prn, consider reglan if patient has persistent vomiting fu labs Subjective Gastrointestinal/Abdominal: Reports: nausea - denies, vomiting - denies Objective Last 24 Hour Vital Signs Date Time Temp Pulse Resp B/P Pulse Ox O2 Delivery O2 Flow Rate FiO2 04/16/16 12:00 96.6 73 18 109/58 95 Nasal Cannula 04/16/16 11:30 Room Air 04/16/16 08:20 Room Air 04/16/16 08:00 97.9 75 18 101/55 96 Room Air 04/16/16 05:55 96.4 04/16/16 04:00 96.4 79 18 97/57 100 Room Air 97.0 04/16/16 00:00 97.5 79 18 122/52 100 Room Air 04/15/16 19:00 96.8 84 20 103/56 99 Room Air 04/15/16 16:00 97.3 81 20 114/60 100 Room Air Intake and Output 04/15/16 04/16/16 19:00 07:00 Intake Total 900 ml 240 ml Balance 900 ml 240 ml Intake Oral 900 ml 240 ml # Voids 2 7 Laboratory Tests Test 04/16/16 09:00 White Blood Count 5.0 K/UL (4.8-10.8) Red Blood Count 2.99 M/UL (4.20-5.40) L Hemoglobin 9.0 G/DL (12.0-16.0) L Hematocrit 29.7 % (37.0-47.0) L Mean Corpuscular Volume 99 FL (80-99) Mean Corpuscular Hemoglobin 30.0 PG (27.0-31.0) Mean Corpuscular Hemoglobin Concent 30.1 G/DL (32.0-36.0) L Red Cell Distribution Width 17.4 % (11.6-14.8) H Platelet Count 108 K/UL (150-450) L Mean Platelet Volume 8.0 FL (6.5-10.1) Neutrophils (%) (Auto) 49.6 % (45.0-75.0) Lymphocytes (%) (Auto) 35.2 % (20.0-45.0) Monocytes (%) (Auto) 10.8 % (1.0-10.0) H Eosinophils (%) (Auto) 4.0 % (0.0-3.0) H Basophils (%) (Auto) 0.5 % (0.0-2.0) Sodium Level 134 mEQ/L (135-145) L Potassium Level 3.8 mEQ/L (3.4-4.9) Chloride Level 93 mEQ/L (98-107) L Carbon Dioxide Level 27 mEQ/L (20-30) Anion Gap 14 (5-15) Blood Urea Nitrogen 26 mg/dL (7-23) H Creatinine 8.4 mg/dL (0.5-0.9) H Estimat Glomerular Filtration Rate 5.9 mL/min (>60) Glucose Level 116 mg/dL (74-106) H Calcium Level 9.5 mg/dL (8.6-10.2) Height (Feet): 5 Height (Inches): 2.00 Weight (Pounds): 220 General Appearance: alert, morbidly obese Cardiovascular: normal rate Respiratory/Chest: normal breath sounds, no respiratory distress Abdominal Exam: normal bowel sounds, non tender, soft Ileana Charles N.P. Apr 16, 2016 13:14
--- NOTE | 2016-04-16 15:51 | General Progress Note ---
Assessment/Plan Problem List: (1) HTN (hypertension) ICD Codes: I10 - Essential (primary) hypertension SNOMED: 01010124 (2) Diabetes ICD Codes: E11.9 - Type 2 diabetes mellitus without complications SNOMED: 65294283 (3) ESRD (end stage renal disease) on dialysis ICD Codes: N18.6 - End stage renal disease; Z99.2 - Dependence on renal dialysis SNOMED: 657426064 (4) Intractable nausea and vomiting ICD Codes: R11.2 - Nausea with vomiting, unspecified SNOMED: 104169159, 321347671 Qualifiers: Qualified Codes: R11.2 - Nausea with vomiting, unspecified (5) Anemia in chronic kidney disease (CKD) ICD Codes: N18.9 - Chronic kidney disease, unspecified; D63.1 - Anemia in chronic kidney disease SNOMED: 223275484, 269630675 Status: stable, progressing, tolerating diet Assessment/Plan ot pt diet dialysis cbc bmp am Subjective Constitutional: Reports: weakness Allergies: Coded Allergies: NO KNOWN DRUG ALLERGIES (Verified Allergy, Unknown, 10/01/13) All Systems: reviewed and negative except above Subjective sleepy calm Objective Last 24 Hour Vital Signs Date Time Temp Pulse Resp B/P Pulse Ox O2 Delivery O2 Flow Rate FiO2 04/16/16 12:00 96.6 73 18 109/58 95 Nasal Cannula 04/16/16 11:30 Room Air 04/16/16 08:20 Room Air 04/16/16 08:00 97.9 75 18 101/55 96 Room Air 04/16/16 05:55 96.4 04/16/16 04:00 96.4 79 18 97/57 100 Room Air 97.0 04/16/16 00:00 97.5 79 18 122/52 100 Room Air 04/15/16 19:00 96.8 84 20 103/56 99 Room Air 04/15/16 16:00 97.3 81 20 114/60 100 Room Air Intake and Output 04/15/16 04/16/16 19:00 07:00 Intake Total 900 ml 240 ml Balance 900 ml 240 ml Intake Oral 900 ml 240 ml # Voids 2 7 Laboratory Tests 04/16/16 09:00: White Blood Count 5.0, Red Blood Count 2.99L, Hemoglobin 9.0L, Hematocrit 29.7L , Mean Corpuscular Volume 99, Mean Corpuscular Hemoglobin 30.0, Mean Corpuscular Hemoglobin Concent 30.1L, Red Cell Distribution Width 17.4H, Platelet Count 108L, Mean Platelet Volume 8.0, Neutrophils (%) (Auto) 49.6, Lymphocytes (%) (Auto) 35.2, Monocytes (%) (Auto) 10.8H, Eosinophils (%) (Auto) 4.0H, Basophils (%) (Auto) 0.5, Sodium Level 134L, Potassium Level 3.8, Chloride Level 93L, Carbon Dioxide Level 27, Anion Gap 14, Blood Urea Nitrogen 26H, Creatinine 8.4H, Estimat Glomerular Filtration Rate 5.9, Glucose Level 116H , Calcium Level 9.5 Height (Feet): 5 Height (Inches): 2.00 Weight (Pounds): 220 General Appearance: lethargic EENT: normal ENT inspection Neck: normal alignment Cardiovascular: normal peripheral pulses, normal rate, regular rhythm Respiratory/Chest: chest wall non-tender, lungs clear, normal breath sounds Abdomen: normal bowel sounds, non tender, soft Extremities: normal inspection Edema: no edema noted Arm (L), no edema noted Arm (R), no edema noted Leg (L), no edema noted Leg (R), no edema noted Pedal (L), no edema noted Pedal (R), no edema noted Generalized Neurologic: responsive, motor weakness Skin: normal pigmentation, warm/dry MANI RAUSCH Apr 16, 2016 15:51
[2016-04-16 16:00] VITALS: BP 100/52
--- NOTE | 2016-04-16 16:40 | Wound Care Consultation ---
Wound Assessment Wound Assessment : Wound Present on Admission: Yes New Wound: No Status Change of Wound: No Wound Location Body Site Modif: right, lower, anterior Wound Location Body Site: leg Wound Type: lesion-etiology unknown Calvin Test: Does not Calvin Edema Degree: 3+ deep indentation Wound Thickness: Full Thickness Wound Length: 7.0 Wound Width: 5.0 Wound Depth: 0.2 Percent of Wound [place]/Red: 80 Percent of Wound Bed Yellow/Wh: 20 Wound Drainage Description: Serosanguineous Wound Drainage Amount: Moderate Wound Drainage Odor: None/Absent Tissue Surrounding Wound: Macerated Wound General Appearance: Reddened, Draining Wound Comment #1 Right anterior lower leg open wound etiology unknown Recommendation -Keep clean and dry -Elevate both legs -Local wound care as ordered -Optimize nutrition -Venous duplex study -Assess and f/u accordingly for any changes MONIQUE LOPES RN Apr 16, 2016 16:40
--- NOTE | 2016-04-16 18:06 | Cardiology Progress Note ---
Assessment/Plan Assessment/Plan 1. Hypotension, adjust fluid withdrawal during HD. 2. Normal LV systolic function with LVEF at 65%. 3. Small pericardial effusion due to ESRD. Subjective Subjective No cardiac events. BP still at borderline. Objective Last 24 Hour Vital Signs Date Time Temp Pulse Resp B/P Pulse Ox O2 Delivery O2 Flow Rate FiO2 04/16/16 16:00 97.7 76 20 100/52 97 Room Air 04/16/16 12:00 96.6 73 18 109/58 95 Nasal Cannula 04/16/16 11:30 Room Air 04/16/16 08:20 Room Air 04/16/16 08:00 97.9 75 18 101/55 96 Room Air 04/16/16 05:55 96.4 04/16/16 04:00 96.4 79 18 97/57 100 Room Air 97.0 04/16/16 00:00 97.5 79 18 122/52 100 Room Air 04/15/16 19:00 96.8 84 20 103/56 99 Room Air Intake and Output 04/15/16 04/16/16 19:00 07:00 Intake Total 900 ml 240 ml Balance 900 ml 240 ml Intake Oral 900 ml 240 ml # Voids 2 7 2D Echo: LVEF 65%, small pericardial effusion, Trace MR, Grade I LVDD Laboratory Tests Test 04/16/16 09:00 White Blood Count 5.0 K/UL (4.8-10.8) Red Blood Count 2.99 M/UL (4.20-5.40) L Hemoglobin 9.0 G/DL (12.0-16.0) L Hematocrit 29.7 % (37.0-47.0) L Mean Corpuscular Volume 99 FL (80-99) Mean Corpuscular Hemoglobin 30.0 PG (27.0-31.0) Mean Corpuscular Hemoglobin Concent 30.1 G/DL (32.0-36.0) L Red Cell Distribution Width 17.4 % (11.6-14.8) H Platelet Count 108 K/UL (150-450) L Mean Platelet Volume 8.0 FL (6.5-10.1) Neutrophils (%) (Auto) 49.6 % (45.0-75.0) Lymphocytes (%) (Auto) 35.2 % (20.0-45.0) Monocytes (%) (Auto) 10.8 % (1.0-10.0) H Eosinophils (%) (Auto) 4.0 % (0.0-3.0) H Basophils (%) (Auto) 0.5 % (0.0-2.0) Sodium Level 134 mEQ/L (135-145) L Potassium Level 3.8 mEQ/L (3.4-4.9) Chloride Level 93 mEQ/L (98-107) L Carbon Dioxide Level 27 mEQ/L (20-30) Anion Gap 14 (5-15) Blood Urea Nitrogen 26 mg/dL (7-23) H Creatinine 8.4 mg/dL (0.5-0.9) H Estimat Glomerular Filtration Rate 5.9 mL/min (>60) Glucose Level 116 mg/dL (74-106) H Calcium Level 9.5 mg/dL (8.6-10.2) Objective HEENT: Atraumatic and normocephalic. Anicteric. Pupils are equal, round, and reactive to light and accommodation. Extraocular muscles intact. NECK: JVP is less than 5 cm. No carotid bruits. Carotid upstrokes 2+ bilaterally. CARDIOVASCULAR: Normal S1 and S2. A 2/6 mid systolic murmur at the left sternal border. PMI is at fourth intercostal space at the left midclavicular line. LUNGS: Clear to auscultation bilaterally. ABDOMEN: Soft, nontender, and nondistended. No hepatosplenomegaly. Positivebowel sounds. EXTREMITIES: No evidence of edema, clubbing, or cyanosis. JANET STEELE Apr 16, 2016 18:06
--- NOTE | 2016-04-16 18:21 | Nephrology Progress Note ---
Assessment/Plan Problem List: (1) ESRD (end stage renal disease) on dialysis (2) Thrombocytopenia (3) Anemia in chronic kidney disease (CKD) (4) Intractable nausea and vomiting (5) Abdominal pain Plan continue HD MWF Monitor Lytes - mild hyponatremia Free water restriction Monitor vitals Pain management GI f/u Cardio f/u Monitor H&H, transfuse as needed AM labs Subjective Constitutional: Denies: chills, diaphoresis, fever, malaise, no symptoms, other , weakness HEENT: Denies: blurred vision, double vision, ear discharge, ear pain, eye pain , mouth pain, mouth swelling, no symptoms, nose congestion, nose pain, other, tearing, throat pain, throat swelling Genitourinary: Denies: burning, discharge, flank pain, frequency, hematuria, incontinence, no symptoms, other, pain, urgency Neurologic/Psychiatric: Denies: anxiety, depressed, emotional problems, headache, no symptoms, numbness, other, paresthesia, pre-existing deficit, seizure, tingling, tremors, weakness Subjective In no apparent distress, states that she feels better Objective Objective Last 24 Hour Vital Signs Date Time Temp Pulse Resp B/P Pulse Ox O2 Delivery O2 Flow Rate FiO2 04/16/16 16:00 97.7 76 20 100/52 97 Room Air 04/16/16 12:00 96.6 73 18 109/58 95 Nasal Cannula 04/16/16 11:30 Room Air 04/16/16 08:20 Room Air 04/16/16 08:00 97.9 75 18 101/55 96 Room Air 04/16/16 05:55 96.4 04/16/16 04:00 96.4 79 18 97/57 100 Room Air 97.0 04/16/16 00:00 97.5 79 18 122/52 100 Room Air 04/15/16 19:00 96.8 84 20 103/56 99 Room Air Intake and Output 04/15/16 04/16/16 19:00 07:00 Intake Total 900 ml 240 ml Balance 900 ml 240 ml Intake Oral 900 ml 240 ml # Voids 2 7 Laboratory Tests 04/16/16 09:00: White Blood Count 5.0, Red Blood Count 2.99L, Hemoglobin 9.0L, Hematocrit 29.7L , Mean Corpuscular Volume 99, Mean Corpuscular Hemoglobin 30.0, Mean Corpuscular Hemoglobin Concent 30.1L, Red Cell Distribution Width 17.4H, Platelet Count 108L, Mean Platelet Volume 8.0, Neutrophils (%) (Auto) 49.6, Lymphocytes (%) (Auto) 35.2, Monocytes (%) (Auto) 10.8H, Eosinophils (%) (Auto) 4.0H, Basophils (%) (Auto) 0.5, Sodium Level 134L, Potassium Level 3.8, Chloride Level 93L, Carbon Dioxide Level 27, Anion Gap 14, Blood Urea Nitrogen 26H, Creatinine 8.4H, Estimat Glomerular Filtration Rate 5.9, Glucose Level 116H , Calcium Level 9.5 Height (Feet): 5 Height (Inches): 2.00 Weight (Pounds): 220 General Appearance: no apparent distress, alert EENT: normal ENT inspection Neck: normal alignment, supple, normal inspection Cardiovascular: normal rate, regular rhythm, no JVD Respiratory/Chest: normal breath sounds, no respiratory distress Abdomen: non tender, soft, no organomegaly Extremities: normal range of motion, non-tender Neurologic: alert, oriented x 3, responsive, normal mood/affect Rach Lima N.P. Apr 16, 2016 18:21
[2016-04-16 20:00] VITALS: BP 102/54
[2016-04-16] MEDS: Miralax 17gm pkt ORAL SCH (21:00)
[2016-04-16] MEDS: Epogen (for ESRD on dialysis) SUBQ SCH (21:05)
[2016-04-17] VITALS: BP 107/63
[2016-04-17 04:00] VITALS: BP 108/51
[2016-04-17 07:06] LABS: MEAN CORPUSCULAR HEMOGLOBIN 30.7 PG (27.0-31.0); MEAN CORPUSCULAR HGB CONC 30.3 G/DL (32.0-36.0); MEAN CORPUSCULAR VOLUME 101 FL (80-99); MEAN PLATELET VOLUME 9.1 FL (6.5-10.1); PLATELET COUNT 84 K/UL (150-450); RED BLOOD COUNT 2.97 M/UL (4.20-5.40); RED CELL DISTRIBUTION WIDTH 16.7 % (11.6-14.8)
[2016-04-17 07:16] LABS: CALCIUM 9.7 mg/dL (8.6-10.2); CREATININE 6.9 mg/dL (0.5-0.9); GLOMERULAR FILTRATION RATE 7.5 mL/min (>60); POTASSIUM 3.9 mEQ/L (3.4-4.9)
[2016-04-17 07:39] LABS: BAND NEUTROPHILS % (MANUAL) 0 % (0-8); BASOPHILS % (MANUAL) 0 % (0-2); EOSINOPHILS % (MANUAL) 2 % (0-3); LYMPHOCYTES % (MANUAL) 39 % (20-45); NEUTROPHILS % (MANUAL) 49 % (45-75); PLATELET ESTIMATE DECREASED; PLATELET MORPHOLOGY NORMAL; TOTAL CELLS COUNTED 100
[2016-04-17 07:40] LABS: ANISOCYTOSIS 1+; HYPOCHROMASIA 1+; MACROCYTES 1+
[2016-04-17 08:00] VITALS: BP 113/56
[2016-04-17] MEDS: Docusate 100mg cap ORAL SCH (08:17)
--- NOTE | 2016-04-17 09:12 | Diagnostic Imaging Report ---
Clinical history: Acute abdominal pain. Technique: Single frontal abdominal radiograph was obtained. Comparisons: None Findings: Visualized bowel gas pattern is unremarkable, without evidence of obstruction. The visualized soft tissues are unremarkable. Moderate retained colonic stool noted. The visualized osseous structures are unremarkable. IMPRESSION: Moderate retained colonic stool. Nonspecific, nonobstructive bowel gas pattern.
--- NOTE | 2016-04-17 10:33 | GI Progress Note ---
Assessment/Plan Problems: (1) Diabetes ICD Codes: E11.9 - Type 2 diabetes mellitus without complications SNOMED: 45453483 (2) Anemia in chronic kidney disease (CKD) ICD Codes: N18.9 - Chronic kidney disease, unspecified; D63.1 - Anemia in chronic kidney disease SNOMED: 777439039, 609298337 (3) Abdominal pain ICD Codes: R10.9 - Unspecified abdominal pain SNOMED: 86995335 (4) Intractable nausea and vomiting ICD Codes: R11.2 - Nausea with vomiting, unspecified SNOMED: 379973667, 723029000 Qualifiers: Qualified Codes: R11.2 - Nausea with vomiting, unspecified (5) Thrombocytopenia ICD Codes: D69.6 - Thrombocytopenia, unspecified SNOMED: 265885847 Status: stable Status Narrative Discussed with Dr. Greer. Assessment/Plan ok for DC per GI standpoint symptomatic treatment at this time renal diet bowel regime fu KUB r/o bowel obs >> Moderate retained colonic stool. zofran prn, consider reglan if patient has persistent vomiting fu labs Subjective Gastrointestinal/Abdominal: Reports: nausea - resolved, no symptoms, vomiting - resolved Objective Last 24 Hour Vital Signs Date Time Temp Pulse Resp B/P Pulse Ox O2 Delivery O2 Flow Rate FiO2 04/17/16 08:00 97.3 82 16 113/56 95 Room Air 04/17/16 04:00 97.0 75 20 108/51 97 Room Air 04/17/16 00:00 96.6 78 20 107/63 97 Room Air 04/16/16 20:00 98.1 79 20 102/54 97 Room Air 04/16/16 16:00 97.7 76 20 100/52 97 Room Air 04/16/16 12:00 96.6 73 18 109/58 95 Nasal Cannula 04/16/16 11:30 Room Air Intake and Output 04/16/16 04/17/16 19:00 07:00 Intake Total 240 ml 480 ml Output Total 2350 ml Balance -2110 ml 480 ml Intake Oral 240 ml 480 ml Hemodialysis UF 2350 ml # Voids 4 Laboratory Tests Test 04/17/16 04:30 White Blood Count 5.0 K/UL (4.8-10.8) Red Blood Count 2.97 M/UL (4.20-5.40) L Hemoglobin 9.1 G/DL (12.0-16.0) L Hematocrit 30.1 % (37.0-47.0) L Mean Corpuscular Volume 101 FL (80-99) H Mean Corpuscular Hemoglobin 30.7 PG (27.0-31.0) Mean Corpuscular Hemoglobin Concent 30.3 G/DL (32.0-36.0) L Red Cell Distribution Width 16.7 % (11.6-14.8) H Platelet Count 84 K/UL (150-450) L Mean Platelet Volume 9.1 FL (6.5-10.1) Neutrophils (%) (Auto) % (45.0-75.0) Lymphocytes (%) (Auto) % (20.0-45.0) Monocytes (%) (Auto) % (1.0-10.0) Eosinophils (%) (Auto) % (0.0-3.0) Basophils (%) (Auto) % (0.0-2.0) Differential Total Cells Counted 100 Neutrophils % (Manual) 49 % (45-75) Lymphocytes % (Manual) 39 % (20-45) Monocytes % (Manual) 10 % (1-10) Eosinophils % (Manual) 2 % (0-3) Basophils % (Manual) 0 % (0-2) Band Neutrophils 0 % (0-8) Platelet Estimate Decreased L Platelet Morphology Normal Hypochromasia 1+ Anisocytosis 1+ Macrocytosis 1+ Sodium Level 135 mEQ/L (135-145) Potassium Level 3.9 mEQ/L (3.4-4.9) Chloride Level 91 mEQ/L (98-107) L Carbon Dioxide Level 30 mEQ/L (20-30) Anion Gap 14 (5-15) Blood Urea Nitrogen 20 mg/dL (7-23) Creatinine 6.9 mg/dL (0.5-0.9) H Estimat Glomerular Filtration Rate 7.5 mL/min (>60) Glucose Level 112 mg/dL (74-106) H Calcium Level 9.7 mg/dL (8.6-10.2) Microbiology Date/Time Source Procedure Growth Status 04/16/16 12:10 Leg Right Gram Stain - Final Resulted 04/16/16 12:10 Leg Right Wound Culture - Preliminary NO GROWTH AFTER 24 HOURS Resulted Height (Feet): 5 Height (Inches): 2.00 Weight (Pounds): 220 General Appearance: no apparent distress, alert Cardiovascular: normal rate Respiratory/Chest: normal breath sounds, no respiratory distress Abdominal Exam: normal bowel sounds, non tender, soft Extremities: normal range of motion Ileana Charles N.P. Apr 17, 2016 10:32
--- NOTE | 2016-04-17 11:07 | Nephrology Progress Note ---
Assessment/Plan Problem List: (1) ESRD (end stage renal disease) on dialysis (2) Anemia in chronic kidney disease (CKD) (3) Diabetes (4) HTN (hypertension) (5) Abdominal pain (6) Intractable nausea and vomiting Plan d/c home. cleared by GI. Subjective Subjective dialyzed yest. doing ok. tolerating po intake. Objective Objective Last 24 Hour Vital Signs Date Time Temp Pulse Resp B/P Pulse Ox O2 Delivery O2 Flow Rate FiO2 04/17/16 08:00 97.3 82 16 113/56 95 Room Air 04/17/16 04:00 97.0 75 20 108/51 97 Room Air 04/17/16 00:00 96.6 78 20 107/63 97 Room Air 04/16/16 20:00 98.1 79 20 102/54 97 Room Air 04/16/16 16:00 97.7 76 20 100/52 97 Room Air 04/16/16 12:00 96.6 73 18 109/58 95 Nasal Cannula 04/16/16 11:30 Room Air Intake and Output 04/16/16 04/17/16 19:00 07:00 Intake Total 240 ml 480 ml Output Total 2350 ml Balance -2110 ml 480 ml Intake Oral 240 ml 480 ml Hemodialysis UF 2350 ml # Voids 4 Laboratory Tests 04/17/16 04:30: White Blood Count 5.0, Red Blood Count 2.97L, Hemoglobin 9.1L, Hematocrit 30.1L , Mean Corpuscular Volume 101H, Mean Corpuscular Hemoglobin 30.7, Mean Corpuscular Hemoglobin Concent 30.3L, Red Cell Distribution Width 16.7H, Platelet Count 84L, Mean Platelet Volume 9.1, Neutrophils (%) (Auto) , Lymphocytes (%) (Auto) , Monocytes (%) (Auto) , Eosinophils (%) (Auto) , Basophils (%) (Auto) , Differential Total Cells Counted 100, Neutrophils % ( Manual) 49, Lymphocytes % (Manual) 39, Monocytes % (Manual) 10, Eosinophils % ( Manual) 2, Basophils % (Manual) 0, Band Neutrophils 0, Platelet Estimate DecreasedL, Platelet Morphology Normal, Hypochromasia 1+, Anisocytosis 1+, Macrocytosis 1+, Sodium Level 135, Potassium Level 3.9, Chloride Level 91L, Carbon Dioxide Level 30, Anion Gap 14, Blood Urea Nitrogen 20, Creatinine 6.9H, Estimat Glomerular Filtration Rate 7.5, Glucose Level 112H, Calcium Level 9.7 Height (Feet): 5 Height (Inches): 2.00 Weight (Pounds): 220 General Appearance: no apparent distress Cardiovascular: normal rate, regular rhythm Respiratory/Chest: lungs clear Abdomen: non tender, soft TRACEY OLIVER Apr 17, 2016 11:07
[2016-04-17 11:55] VITALS: BP 126/65
--- NOTE | 2016-04-17 13:04 | General Progress Note ---
Assessment/Plan Problem List: (1) HTN (hypertension) ICD Codes: I10 - Essential (primary) hypertension SNOMED: 65481215 (2) Diabetes ICD Codes: E11.9 - Type 2 diabetes mellitus without complications SNOMED: 16704801 (3) ESRD (end stage renal disease) on dialysis ICD Codes: N18.6 - End stage renal disease; Z99.2 - Dependence on renal dialysis SNOMED: 313639117 (4) Intractable nausea and vomiting ICD Codes: R11.2 - Nausea with vomiting, unspecified SNOMED: 775332432, 804661649 Qualifiers: Qualified Codes: R11.2 - Nausea with vomiting, unspecified (5) Anemia in chronic kidney disease (CKD) ICD Codes: N18.9 - Chronic kidney disease, unspecified; D63.1 - Anemia in chronic kidney disease SNOMED: 480330698, 487307225 Status: stable, progressing, tolerating diet Assessment/Plan ot pt diet dialysis cbc bmp am dc plan Subjective Constitutional: Reports: weakness Allergies: Coded Allergies: NO KNOWN DRUG ALLERGIES (Verified Allergy, Unknown, 10/01/13) All Systems: reviewed and negative except above Subjective sleepy calm Objective Last 24 Hour Vital Signs Date Time Temp Pulse Resp B/P Pulse Ox O2 Delivery O2 Flow Rate FiO2 04/17/16 11:55 97.6 84 16 126/65 100 Room Air 04/17/16 08:00 97.3 82 16 113/56 95 Room Air 04/17/16 04:00 97.0 75 20 108/51 97 Room Air 04/17/16 00:00 96.6 78 20 107/63 97 Room Air 04/16/16 20:00 98.1 79 20 102/54 97 Room Air 04/16/16 16:00 97.7 76 20 100/52 97 Room Air Intake and Output 04/16/16 04/17/16 19:00 07:00 Intake Total 240 ml 480 ml Output Total 2350 ml Balance -2110 ml 480 ml Intake Oral 240 ml 480 ml Hemodialysis UF 2350 ml # Voids 4 Laboratory Tests 04/17/16 04:30: White Blood Count 5.0, Red Blood Count 2.97L, Hemoglobin 9.1L, Hematocrit 30.1L , Mean Corpuscular Volume 101H, Mean Corpuscular Hemoglobin 30.7, Mean Corpuscular Hemoglobin Concent 30.3L, Red Cell Distribution Width 16.7H, Platelet Count 84L, Mean Platelet Volume 9.1, Neutrophils (%) (Auto) , Lymphocytes (%) (Auto) , Monocytes (%) (Auto) , Eosinophils (%) (Auto) , Basophils (%) (Auto) , Differential Total Cells Counted 100, Neutrophils % ( Manual) 49, Lymphocytes % (Manual) 39, Monocytes % (Manual) 10, Eosinophils % ( Manual) 2, Basophils % (Manual) 0, Band Neutrophils 0, Platelet Estimate DecreasedL, Platelet Morphology Normal, Hypochromasia 1+, Anisocytosis 1+, Macrocytosis 1+, Sodium Level 135, Potassium Level 3.9, Chloride Level 91L, Carbon Dioxide Level 30, Anion Gap 14, Blood Urea Nitrogen 20, Creatinine 6.9H, Estimat Glomerular Filtration Rate 7.5, Glucose Level 112H, Calcium Level 9.7 Height (Feet): 5 Height (Inches): 2.00 Weight (Pounds): 220 General Appearance: alert EENT: normal ENT inspection Neck: normal alignment Cardiovascular: normal peripheral pulses, normal rate, regular rhythm Respiratory/Chest: chest wall non-tender, lungs clear, normal breath sounds Abdomen: normal bowel sounds, non tender, soft Extremities: normal inspection Edema: no edema noted Arm (L), no edema noted Arm (R), no edema noted Leg (L), no edema noted Leg (R), no edema noted Pedal (L), no edema noted Pedal (R), no edema noted Generalized Neurologic: responsive, motor weakness Skin: normal pigmentation, warm/dry MANI RAUSCH Apr 17, 2016 13:04
--- NOTE | 2016-04-17 20:28 | Cardiology Report ---
APPROVED REPORT EKG Measurement Heart [id number] Normal sinus rhythm Normal ECG
--- NOTE | 2016-04-19 14:55 | Discharge Summary ---
Discharge Summary Hospital Course Date of Admission Apr 12, 2016 at 19:13 Date of Discharge Apr 17, 2016 at 14:35 Admitting Diagnosis intractable vomiting in dialysis pt. HPI Mikaela Munoz is a 55 year old female who was admitted on Apr 12, 2016 at 19: 13 for Intractable Vomiting In Dialysis Pt Hospital Course [id number] Discharge Discharge Disposition Patient was discharged to Home (01) Discharge Diagnoses: Alexia Maya NP Apr 19, 2016 14:55
--- NOTE | 2016-04-20 03:18 | Discharge Summary 2 SIG ---
DATE OF ADMISSION: 04/12/2016 DATE OF DISCHARGE: 04/17/2016 CONSULTANTS: 1. Jose Enrique Greer M.D. 2. Norberto Lind M.D. 3. Richar Prince D.O. 4. Sameer Dias M.D. BRIEF HOSPITAL COURSE: The patient is a 55-year-old female, who presented to ED with complaints of abdominal pain who had two episodes of vomiting at home. Abdominal pain was crampy in nature. She has a history of end-stage renal disease and is on hemodialysis every Saturday, Saturday, and Saturday. She was given inpatient hemodialysis. Dr. Lind was consulted for evaluation of hypotension. She was advised to decrease withdrawal of volume during hemodialysis. Echocardiogram was done showed normal left ventricular systolic function with LVEF of 65% with small pericardial effusion due to end-stage renal disease. She was given bowel regimen. Diet was advanced to renal diet. A follow up KUB showed moderate retained colonic stool. She was eventually discharged to home. FINAL DIAGNOSES: 1. End-stage renal disease, on hemodialysis. 2. Anemia of kidney disease. 3. Hypertension. 4. Diabetes mellitus. 5. Thrombocytopenia. 6. Anemia of chronic disease. 7. Right anterior lower lobe open wound etiology unknown, present on admission. Jhoan Hamm M.D. I have been assigned to dictate discharge summary on this account and I was not involved in the patient's management. Alexia Maya N.P. DR: LUCIA JOB#: [id number] CC: PRAVEEN
== END 2016-04-17 14:35 | disposition home or self-care (01) | DRG 682 ==
LOC: ENRESERVDT → ENRESERVTM → EMR 18:53 → 4E 19:13 → EDBEDREQ 20:32
PROC: 5A1D60Z (ICD-10-PCS; principal; 2016-04-16)
DX: I12.0 Hypertensive chronic kidney disease with stage 5 chronic kidney disease or end stage renal disease (principal); N18.6 End stage renal disease; I31.3 Pericardial effusion (noninflammatory); D69.6 Thrombocytopenia, unspecified; E11.22 Type 2 diabetes mellitus with diabetic chronic kidney disease; I95.9 Hypotension, unspecified; E86.0 Dehydration; E83.52 Hypercalcemia; Z99.2 Dependence on renal dialysis; D63.1 Anemia in chronic kidney disease; R11.2 Nausea with vomiting, unspecified; S81.801A Unspecified open wound, right lower leg, initial encounter; X58.XXXA Exposure to other specified factors, initial encounter; Y92.9 Unspecified place or not applicable
CPT/HCPCS: 36415; 74000; 80048; 80053; 82150; 82550; 82553; 83540; 83550; 83690; 83735; 84100; 84484; 85007; 85025; 87070; 87181; 87205; 93005; 93306; 97803; J2405

== ENCOUNTER 2016-08-24 18:00 | Emergency (ER) | payer MEDICARE, MEDICAID ==
[~2016-08-24] VITALS: Ht 157.5 cm; Wt 99.8 kg
[~2016-08-24 18:00] MED LIST changes: +NKM
[2016-08-24 18:35] VITALS: BP 124/71
[2016-08-24] MEDS ORDERED: Tetracaine 0.5% Opth Soln LEFT EYE ONE (18:45)
[2016-08-24] MEDS ORDERED: TYLENOL EXTRA500 MG ORAL (19:11)
[2016-08-24 19:15] VITALS: BP 114/77
[2016-08-24] MEDS ORDERED: CYCLOGYL 1% OP S2 ML OP (19:16)
--- NOTE | 2016-08-25 12:46 | Emergency Room Report ---
History of Present Illness General Chief Complaint: Eye Problems Source: Patient, Family Member Present Illness HPI The patient is a 55 year-old female with developmental delay brought in by father for injury to the left eye. The patient states that she slipped and fell onto her walker. The patient and father deny loss of consciousness. She is now complaining of pain described as a dull ache. Unable to provide number. Pain does not radiate. She denies hitting any other part of her body. She does admit to blurriness of the left eye. She denies other symptoms including dizziness, headache Allergies: Coded Allergies: NO KNOWN DRUG ALLERGIES (Verified Allergy, Unknown, 10/01/13) Patient History Past Medical History: see triage record Pertinent Family History: none Reviewed Nursing Documentation: PMH: Agreed, PSxH: Agreed Nursing Documentation-PMH Hx Cardiac Problems: Yes Hx Hypertension: Yes Hx Diabetes: Yes Hx Cancer: No Hx Gastrointestinal Problems: No Hx Dialysis: Yes Hx Neurological Problems: Yes Hx Concentration Difficulty: Yes Hx Neurologic Surgery: No Review of Systems All Other Systems: negative except mentioned in HPI Physical Exam Vital Signs Date Time Temp Pulse Resp B/P Pulse Ox O2 Delivery O2 Flow Rate FiO2 08/24/16 18:22 98.6 80 16 117/68 96 Room Air Sp02 EP Interpretation: reviewed, normal General Appearance: no apparent distress, alert, GCS 15, non-toxic Head: normocephalic, atraumatic Eyes: left eye Scleral Injection, bilateral eye EOMI, bilateral eye PERRL ENT: hearing grossly normal, normal pharynx, no angioedema, normal voice Neck: full range of motion, supple/symm/no masses Musculoskeletal: back normal, gait/station normal, normal range of motion Neurologic: alert, oriented x3, responsive, motor strength/tone normal, sensory intact, speech normal Psychiatric: judgement/insight normal, memory normal, mood/affect normal, no suicidal/homicidal ideation Skin: normal color, no rash, warm/dry, well hydrated Lymphatic: no adenopathy Medical Decision Making PA Attestation Dr. Bowman is my supervising physician. Patient management was discussed with my supervising physician Diagnostic Impression: Primary Impression: Contusion, eye Qualified Codes: S05.12XA - Contusion of eyeball and orbital tissues, left eye , initial encounter ER Course The patient is a 55 year-old female with developmental delay brought in by father for injury to the left eye Differential diagnoses considered but not limited to contusion, traumatic iritis , allergic conjunctivitis, bacterial conjunctivitis, viral conjunctivitis, blepharitis, hordeolum PE: NAD. PERRL. EOMI. There is L upper eyelid edema and conjunctival injection. No subconjunctival hemorrhage. No corneal hazing. no DC Tetracaine applied for pain She is DC'ed home with prescription for tylenol and cyclopentolate. She needs to FU with chiropractor assistant ER precautions given Last Vital Signs Date Time Temp Pulse Resp B/P Pulse Ox O2 Delivery O2 Flow Rate FiO2 08/24/16 19:15 98.2 77 16 114/77 98 Room Air Status: improved Disposition: HOME, SELF-CARE Condition: Improved Scripts Cyclopentolate HCl (Cyclopentolate HCl) 2 Ml Drops 1 DROP OP BID, #2 ML Prov: ENMA MARTINEZ 08/24/16 Acetaminophen* (TYLENOL EXTRA STRENGTH*) 500 Mg Tablet 500 MG ORAL Q8H Y for Prn Headache/Temp > 101, #30 TAB 0 Refills Prov: ENMA MARTINEZ.ACasper 08/24/16 Referrals: NOT CHOSEN IPA/MD,REFERRING (PCP) Patient Instructions: Eye Contusion Additional Instructions: I discussed my findings with the patient's father. All questions and concerns have been answered. Treatment and medication compliance have been addressed. I advised the patient that they need to follow up with PMD in 3-5 days. Return to ED if symptoms worsen, new symptoms arise, or if needed for any reason. Patient verbalized understanding of discharge instructions. ENMA MARTINEZ Aug 25, 2016 12:46
== END 2016-08-24 19:17 | disposition home or self-care (01) ==
LOC: EMR 18:30
DX: S05.12XA Contusion of eyeball and orbital tissues, left eye, initial encounter (principal); W01.0XXA Fall on same level from slipping, tripping and stumbling without subsequent striking against object, initial encounter; Y92.89 Other specified places as the place of occurrence of the external cause; Y99.8 Other external cause status; I10 Essential (primary) hypertension; E11.9 Type 2 diabetes mellitus without complications
CPT/HCPCS: 99284

== ENCOUNTER 2017-12-17 16:26 | Emergency (ER) | payer MEDICARE, MEDICAID ==
[~2017-12-17] VITALS: Ht 157.5 cm; Wt 108.9 kg
[~2017-12-17 16:26] MED LIST changes: +CYCLOGYL 1% OP S2 ML OP; +TYLENOL EXTRA500 MG ORAL
[2017-12-17] MEDS ORDERED: UNOBMED (16:47)
[2017-12-17 17:34] VITALS: BP 105/68
--- NOTE | 2017-12-17 17:36 | Emergency Room Report ---
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 Patient states that she accidentally banged it on something. Did not fall or hit her head. Complaining of pain to her knee and her leg. When asked about the wound, says that it has looked the same for the last 2 years. Says that it occasionally drains. But not much right now. No fever no chills no other complaints Allergies: Coded Allergies: NO KNOWN DRUG ALLERGIES (Verified Allergy, Unknown, 10/01/13) Patient History Past Medical History: see triage record Past Surgical History: none Pertinent Family History: none Reviewed Nursing Documentation: PMH: Agreed; PSxH: Agreed Nursing Documentation-PMH Past Medical History: No History, Except For Hx Cardiac Problems: No Hx Hypertension: No Hx Pacemaker: No Hx Asthma: No Hx COPD: No Hx Diabetes: No Hx Cancer: No Hx Gastrointestinal Problems: No Hx Dialysis: Yes - M-W-F History Of Psychiatric Problem: No Hx Neurological Problems: No Hx Cerebrovascular Accident: No Hx Seizures: No Hx Concentration Difficulty: Yes Hx Neurologic Surgery: No Review of Systems All Other Systems: negative except mentioned in HPI Physical Exam Vital Signs Date Time Temp Pulse Resp B/P (MAP) Pulse Ox O2 Delivery O2 Flow Rate FiO2 12/17/17 16:41 98.5 75 16 105/68 96 Room Air 98.4 Sp02 EP Interpretation: reviewed, normal General Appearance: alert, GCS 15, non-toxic, mild distress Head: normocephalic, atraumatic Eyes: bilateral eye normal inspection, bilateral eye PERRL, bilateral eye EOMI ENT: normal ENT inspection, normal pharynx, normal voice, moist mucus membranes Neck: normal inspection, full range of motion, supple Respiratory: normal inspection, lungs clear, normal breath sounds, no respiratory distress, no retraction, no wheezing, speaking full sentences, chest symmetrical Cardiovascular #1: normal inspection, regular rate, rhythm, normal capillary refill Cardiovascular #2: 2+ radial (R), 2+ radial (L) Gastrointestinal: normal inspection, non tender, soft, non-distended, no guarding Musculoskeletal: other - Right lower extremity with 2 x 2 centimeter ulceration anterior tib-fib, nontender, no purulent drainage, right knee generalized tenderness without any effusion, has full range of motion of knee, right thigh noted to have AV fistula Neurologic: normal inspection, alert, oriented x3, responsive, motor strength/ tone normal, sensory intact, normal gait, speech normal Psychiatric: normal inspection, judgement/insight normal, memory normal Skin: normal inspection, normal color, no rash, warm/dry, well hydrated, normal turgor Medical Decision Making Diagnostic Impression: Primary Impression: Knee contusion Additional Impression: Chronic ulcer of leg ER Course 57-year-old female with right knee pain right leg pain, also has an open wound for the last 2 years DDX: Contusion versus fracture, the right leg wound that is chronic, with some drainage, possible infection as well Plan: Obtain labs, x-ray right knee and right tib-fib ER course: Patient has remained stable during ED stay nontoxic appearing X-rays are negative Will DC home, will also give antibiotic to go home with, they stated that this appears the same for the last 2 years but will tell them to see her doctor in 2- 3 days for wound check Disposition: Patient is to be discharged to home. Prescriptions given are keflex EKG Diagnostic Results EP Interpretation: Yes Rate: normal Rhythm: NSR ST Segments: No acute changes ASA given to patient: No Rhythm Strip EP Interpretation: Yes Rate: 70 Rhythm: NSR, no PVCs, no ectopy Xray: Right tib-fib 2view Indication: Pain EP Interpretation: Yes Interpretation: No dislocation, no soft tissue swelling, no fractures Impression: No acute disease Electronically signed by Marika Tracey MD Xray: Right knee Complete Indication: Pain EP Interpretation: Yes Interpretation: No dislocation, no soft tissue swelling, no fractures Impression: No acute disease Electronically signed by Marika Tracey MD Laboratory Tests Test 12/17/17 17:25 White Blood Count 4.5 K/UL (4.8-10.8) L Red Blood Count 3.97 M/UL (4.20-5.40) L Hemoglobin 12.5 G/DL (12.0-16.0) Hematocrit 39.6 % (37.0-47.0) Mean Corpuscular Volume 100 FL (80-99) H Mean Corpuscular Hemoglobin 31.6 PG (27.0-31.0) H Mean Corpuscular Hemoglobin Concent 31.6 G/DL (32.0-36.0) L Red Cell Distribution Width 15.3 % (11.6-14.8) H Platelet Count 64 K/UL (150-450) L Mean Platelet Volume 7.4 FL (6.5-10.1) Neutrophils (%) (Auto) % (45.0-75.0) Lymphocytes (%) (Auto) % (20.0-45.0) Monocytes (%) (Auto) % (1.0-10.0) Eosinophils (%) (Auto) % (0.0-3.0) Basophils (%) (Auto) % (0.0-2.0) Differential Total Cells Counted 100 Neutrophils % (Manual) 46 % (45-75) Lymphocytes % (Manual) 43 % (20-45) Monocytes % (Manual) 9 % (1-10) Eosinophils % (Manual) 2 % (0-3) Basophils % (Manual) 0 % (0-2) Band Neutrophils 0 % (0-8) Platelet Estimate Decreased L Platelet Morphology Normal Hypochromasia 1+ Anisocytosis 1+ Sodium Level 136 MMOL/L (136-145) Potassium Level 3.9 MMOL/L (3.5-5.1) Chloride Level 101 MMOL/L (98-107) Carbon Dioxide Level 26 MMOL/L (21-32) Anion Gap 9 mmol/L (5-15) Blood Urea Nitrogen 35 mg/dL (7-18) H Creatinine 6.5 MG/DL (0.55-1.30) H Estimate Glomerular Filtration Rate 8.0 mL/min (>60) Glucose Level 94 MG/DL (74-106) Lactic Acid Level 1.30 mmol/L (0.4-2.0) Calcium Level 8.8 MG/DL (8.5-10.1) Total Bilirubin 0.2 MG/DL (0.2-1.0) Aspartate Amino Transferase (AST) 28 U/L (15-37) Alanine Aminotransferase (ALT) 36 U/L (12-78) Alkaline Phosphatase 356 U/L (46-116) H Total Protein 7.7 G/DL (6.4-8.2) Albumin 2.9 G/DL (3.4-5.0) L Globulin 4.8 g/dL Albumin/Globulin Ratio 0.6 (1.0-2.7) L Last Vital Signs Date Time Temp Pulse Resp B/P (MAP) Pulse Ox O2 Delivery O2 Flow Rate FiO2 12/17/17 16:41 98.5 75 16 105/68 96 Room Air 98.4 Disposition: HOME, SELF-CARE Condition: Improved Scripts Cephalexin* (KEFLEX*) 500 Mg Capsule 500 MG ORAL EVERY 6 HOURS for 7 Days, #28 CAP Prov: Marika Tracey M.D. 12/17/17 Marika Tracey M.D. Dec 17, 2017 17:36
[2017-12-17 17:48] LABS: HEMATOCRIT 39.6 % (37.0-47.0); HEMOGLOBIN 12.5 G/DL (12.0-16.0); MEAN CORPUSCULAR VOLUME 100 FL (80-99); PLATELET COUNT 64 K/UL (150-450); RED BLOOD COUNT 3.97 M/UL (4.20-5.40); RED CELL DISTRIBUTION WIDTH 15.3 % (11.6-14.8); WHITE BLOOD COUNT 4.5 K/UL (4.8-10.8)
[2017-12-17 18:07] LABS: ANION GAP 9 mmol/L (5-15); BLOOD UREA NITROGEN 35 mg/dL (7-18); CALCIUM 8.8 MG/DL (8.5-10.1); CARBON DIOXIDE 26 MMOL/L (21-32); CHLORIDE 101 MMOL/L (98-107); CREATININE 6.5 MG/DL (0.55-1.30); POTASSIUM 3.9 MMOL/L (3.5-5.1); SODIUM 136 MMOL/L (136-145)
[2017-12-17 18:12] LABS: ALANINE AMINOTRANSFERASE 36 U/L (12-78); ALBUMIN 2.9 G/DL (3.4-5.0); ALBUMIN/GLOBULIN RATIO 0.6 (1.0-2.7); ALKALINE PHOSPHATASE 356 U/L (46-116); ASPARTATE AMINO TRANSFERASE 28 U/L (15-37); BILIRUBIN,TOTAL 0.2 MG/DL (0.2-1.0)
[2017-12-17] MEDS ORDERED: CEPHALEXIN500 MG ORAL (18:16)
[2017-12-17 18:46] VITALS: BP 108/66
[2017-12-17 18:58] VITALS: BP 108/66
--- NOTE | 2017-12-18 12:12 | Diagnostic Imaging Report ---
Indication: Pain Knee pain/trauma 3 views of the right knee were obtained. Findings: No acute fracture appreciated. Bones are osteopenic. No malalignment demonstrated. Surgical clips noted in the posterior to the lower femur. IMPRESSION: No acute fracture
--- NOTE | 2017-12-18 12:15 | Diagnostic Imaging Report ---
Indication: Right leg pain Comparison: None Findings: Two views of the right tibia and fibula were obtained. Bones are osteopenic. There is no fracture or malalignment identified. No periostitis or erosive changes of the bones identified. Soft tissue swelling is present. There is apparent lucency or ulcerative defect involving the anterolateral part of the leg. IMPRESSION: Apparent soft tissue ulceration in the anterior part of the leg. No acute bony findings.
--- NOTE | 2017-12-18 15:21 | Cardiology Report ---
APPROVED REPORT EKG Measurement Heart [id number] Normal sinus rhythm Left axis deviation Low voltage QRS Inferior infarct, age undetermined Possible Anterolateral infarct, age undetermined Abnormal ECG
== END 2017-12-17 19:00 | disposition home or self-care (01) ==
LOC: EMR 17:54
DX: S80.01XD Contusion of right knee, subsequent encounter (principal); L98.498 Non-pressure chronic ulcer of skin of other sites with other specified severity; M25.561 Pain in right knee; M79.604 Pain in right leg; E11.22 Type 2 diabetes mellitus with diabetic chronic kidney disease; I12.0 Hypertensive chronic kidney disease with stage 5 chronic kidney disease or end stage renal disease; N18.6 End stage renal disease; Z99.2 Dependence on renal dialysis
CPT/HCPCS: 36415; 80053; 83605; 85007; 85025; 93005; 99284

== ENCOUNTER 2018-02-07 17:32 | Inpatient (IN) | payer MEDICARE, MEDICAID ==
[~2018-02-07] VITALS: Ht 167.6 cm; Wt 75.3 kg
[~2018-02-07 17:32] MED LIST changes: +CEPHALEXIN500 MG ORAL; +UNOBMED
[2018-02-07] MEDS ORDERED: Hydrogen Peroxide 473ml Bottle TOPIC ONE ×2 (17:44→18:00)
[2018-02-07 17:45] VITALS: BP 75/54
[2018-02-07 18:00] VITALS: BP 81/52
[2018-02-07] MEDS ORDERED: Sodium Chloride 500ML 500 ML IV ONE ×2 (18:00→20:15)
[2018-02-07 18:15] VITALS: BP 88/53
[2018-02-07 18:21] LABS: ANION GAP 7 mmol/L (5-15); BLOOD UREA NITROGEN 11 mg/dL (7-18); CALCIUM 8.9 MG/DL (8.5-10.1); CARBON DIOXIDE 27 MMOL/L (21-32); CHLORIDE 106 MMOL/L (98-107); CREATININE 3.8 MG/DL (0.55-1.30); POTASSIUM 4.5 MMOL/L (3.5-5.1); SODIUM 140 MMOL/L (136-145)
[2018-02-07 18:26] LABS: ALANINE AMINOTRANSFERASE 21 U/L (12-78); ALBUMIN 2.4 G/DL (3.4-5.0); ALBUMIN/GLOBULIN RATIO 0.5 (1.0-2.7); ALKALINE PHOSPHATASE 240 U/L (46-116); ASPARTATE AMINO TRANSFERASE 20 U/L (15-37); BILIRUBIN,TOTAL 0.3 MG/DL (0.2-1.0); HEMATOCRIT 33.4 % (37.0-47.0); HEMOGLOBIN 10.5 G/DL (12.0-16.0); MEAN CORPUSCULAR VOLUME 98 FL (80-99); PLATELET COUNT 73 K/UL (150-450); RED BLOOD COUNT 3.42 M/UL (4.20-5.40); RED CELL DISTRIBUTION WIDTH 16.7 % (11.6-14.8); WHITE BLOOD COUNT 4.2 K/UL (4.8-10.8)
[2018-02-07 18:30] VITALS: BP 86/53
[2018-02-07] MEDS: Sodium Chloride 500ML 550 ML IV SCH ×2 (19:00→22:20)
[2018-02-07 19:14] VITALS: BP 90/59
--- NOTE | 2018-02-07 21:36 | Emergency Room Report ---
History of Present Illness General Chief Complaint: General Complaint Source: EMS Present Illness HPI Patient 57-year-old female presented after increased bleeding from her lower extremity shunt. Patient reports having increased generalized weakness. Patient was noted to have dialysis earlier in the day. Patient is normally dialyzed Saturday was in Saturday. Patient states that she does not know her vascular surgeon is. The patient patient was noted to have moderate blood loss.The bleeding was noted to be controlled prior to arrival. Allergies: Coded Allergies: NO KNOWN DRUG ALLERGIES (Verified Allergy, Unknown, 10/01/13) Patient History Past Medical History: see triage record, DM, renal disease, dialysis Now: No Reviewed Nursing Documentation: PMH: Agreed; PSxH: Agreed Nursing Documentation-PMH Hx Cardiac Problems: Yes - M, W, F dialysis Hx Hypertension: Yes Hx Pacemaker: No Hx Asthma: Yes Hx COPD: No Hx Diabetes: Yes Hx Cancer: No Hx Gastrointestinal Problems: No Hx Dialysis: Yes - M-W-F Hx Neurological Problems: No Hx Cerebrovascular Accident: No Hx Seizures: No Hx Concentration Difficulty: Yes Hx Neurologic Surgery: No Review of Systems All Other Systems: negative except mentioned in HPI Physical Exam Vital Signs Date Time Temp Pulse Resp B/P (MAP) Pulse Ox O2 Delivery O2 Flow Rate FiO2 02/07/18 17:25 98.4 79 14 110/72 99 Room Air Sp02 EP Interpretation: reviewed, normal General Appearance: alert, Chronically Ill Head: atraumatic ENT: normal ENT inspection, hearing grossly normal, normal voice Neck: normal inspection, full range of motion, supple, no bony tend Respiratory: normal inspection, lungs clear, normal breath sounds, no respiratory distress, no retraction, no wheezing Cardiovascular #1: regular rate, rhythm, edema Gastrointestinal: normal inspection, normal bowel sounds, non tender, soft, no guarding, no hernia Genitourinary: no CVA tenderness Musculoskeletal: normal inspection, back normal, normal range of motion Neurologic: normal inspection, alert, oriented x3, responsive, enginehouse brakeman III-XII nml as tested, speech normal Psychiatric: normal inspection, judgement/insight normal, mood/affect normal Skin: other - right lower extremity ulcer, right groin dialysis acces without active bleeding Medical Decision Making Diagnostic Impression: Primary Impression: ESRD (end stage renal disease) on dialysis Additional Impressions: Hypotension Hypovolemia due to hemorrhage ER Course Patient presented for general is weakness and hemorrhage. The differential diagnosis included was not limited to anemia, coagulopathy, hyperkalemia among others.Because of complexity of patient's case laboratory testing and imaging studies were ordered.The patient's laboratory testing was unremarkable except for anemia which is consistent with patient's prior lab values.The patient was noted to be hypotensive and was given IV fluids. She was noted to have some improvement her blood pressure. The patient was discussed with Dr. Dariel Palomino for Dr. Hamm due to covering physician. The patient be placed in observation due to hypotension.The patient will require blood count monitoring. Laboratory Tests Test 02/07/18 18:00 White Blood Count 4.2 K/UL (4.8-10.8) L Red Blood Count 3.42 M/UL (4.20-5.40) L Hemoglobin 10.5 G/DL (12.0-16.0) L Hematocrit 33.4 % (37.0-47.0) L Mean Corpuscular Volume 98 FL (80-99) Mean Corpuscular Hemoglobin 30.6 PG (27.0-31.0) Mean Corpuscular Hemoglobin Concent 31.3 G/DL (32.0-36.0) L Red Cell Distribution Width 16.7 % (11.6-14.8) H Platelet Count 73 K/UL (150-450) L Mean Platelet Volume 8.2 FL (6.5-10.1) Neutrophils (%) (Auto) % (45.0-75.0) Lymphocytes (%) (Auto) % (20.0-45.0) Monocytes (%) (Auto) % (1.0-10.0) Eosinophils (%) (Auto) % (0.0-3.0) Basophils (%) (Auto) % (0.0-2.0) Differential Total Cells Counted 100 Neutrophils % (Manual) 33 % (45-75) L Lymphocytes % (Manual) 57 % (20-45) H Monocytes % (Manual) 6 % (1-10) Eosinophils % (Manual) 3 % (0-3) Basophils % (Manual) 1 % (0-2) Band Neutrophils 0 % (0-8) Platelet Estimate Decreased L Platelet Morphology Normal Hypochromasia 1+ Anisocytosis 1+ Sodium Level 140 MMOL/L (136-145) Potassium Level 4.5 MMOL/L (3.5-5.1) Chloride Level 106 MMOL/L (98-107) Carbon Dioxide Level 27 MMOL/L (21-32) Anion Gap 7 mmol/L (5-15) Blood Urea Nitrogen 11 mg/dL (7-18) Creatinine 3.8 MG/DL (0.55-1.30) H Estimate Glomerular Filtration Rate 14.8 mL/min (>60) Glucose Level 106 MG/DL (74-106) Calcium Level 8.9 MG/DL (8.5-10.1) Total Bilirubin 0.3 MG/DL (0.2-1.0) Aspartate Amino Transferase (AST) 20 U/L (15-37) Alanine Aminotransferase (ALT) 21 U/L (12-78) Alkaline Phosphatase 240 U/L (46-116) H Total Protein 6.9 G/DL (6.4-8.2) Albumin 2.4 G/DL (3.4-5.0) L Globulin 4.5 g/dL Albumin/Globulin Ratio 0.5 (1.0-2.7) L Last Vital Signs Date Time Temp Pulse Resp B/P (MAP) Pulse Ox O2 Delivery O2 Flow Rate FiO2 02/07/18 19:14 70 18 90/59 100 Room Air 02/07/18 17:45 98.2 Status: unchanged Disposition: ADMITTED INPATIENT Condition: Stable Referrals: NON PHYSICIAN (PCP) Haresh Mendoza MD Feb 07, 2018 21:36
[2018-02-07 23:00] VITALS: BP 90/56
[2018-02-08] VITALS (7 sets, daily range): BP systolic 90–137; BP diastolic 54–72
[2018-02-08] MEDS: Sodium Chloride 500ML 550 ML IV SCH (03:48)
[2018-02-08] MEDS ORDERED: Cyclopentolate 1% Opth Sol 2ml BOTH EYES ONE ×3 (09:00→13:00)
[2018-02-08 10:08] LABS: HEMATOCRIT 32.2 % (37.0-47.0); HEMOGLOBIN 9.8 G/DL (12.0-16.0); MEAN CORPUSCULAR VOLUME 99 FL (80-99); PLATELET COUNT 85 K/UL (150-450); RED BLOOD COUNT 3.27 M/UL (4.20-5.40); RED CELL DISTRIBUTION WIDTH 17.1 % (11.6-14.8); WHITE BLOOD COUNT 4.8 K/UL (4.8-10.8)
[2018-02-08 10:25] LABS: ANION GAP 9 mmol/L (5-15); BLOOD UREA NITROGEN 15 mg/dL (7-18); CARBON DIOXIDE 27 MMOL/L (21-32); CHLORIDE 105 MMOL/L (98-107); CREATININE 4.9 MG/DL (0.55-1.30); POTASSIUM 4.4 MMOL/L (3.5-5.1); SODIUM 141 MMOL/L (136-145)
--- NOTE | 2018-02-08 10:45 | History and Physical Report ---
DATE OF ADMISSION: 02/07/2018 REASON FOR ADMISSION: Right thigh AV graft bleeding. HISTORY OF PRESENT ILLNESS: The patient is a 57-year-old female who undergoes hemodialysis Saturday, Saturday, and Saturday on the Continuity of Care as an outpatient by myself and Dr. Hamm. It seemed that the patient did have successful hemodialysis yesterday without incident and then upon arriving at home, the patient states that her right thigh graft started to bleed uncontrollably. As such, she presented to emergency room for further evaluation and care, where pressure was applied and hemostasis was achieved. The patient is currently feeling well. No chest pain, nausea, vomiting, or diarrhea. No shortness of breath. PAST MEDICAL HISTORY: 1. Diabetes mellitus. 2. Hypertension. 3. End-stage renal disease, on dialysis. 4. Anemia of chronic kidney disease. 5. Secondary hyperparathyroidism. FAMILY HISTORY: Positive for hypertension and diabetes. PAST SURGICAL HISTORY: 1. AV fistula. 2. AV graft of right thigh. REVIEW OF SYSTEMS: NEUROLOGIC: The patient denies headache, change in vision, syncope, or presyncopal episodes. CARDIOVASCULAR: No current chest pain, palpitations, or angina. PULMONARY: No difficulty breathing, productive cough, or sputum. GASTROINTESTINAL/GENITOURINARY: No change in her urinary or bowel habits. No nausea, vomiting, or diarrhea. ENDOCRINOLOGY: No night sweats, fevers, or chills. LABORATORY DATA: Laboratories dated February 07, 2018, sodium 140, potassium 4.5, BUN 11, creatinine 3.8. Hemoglobin 10.5, white cell count 4.2, and platelet count 73,000. PHYSICAL EXAMINATION: VITAL SIGNS: Blood pressure 137/68, respiratory rate 20, pulse 75, temperature 98.1, O2 saturation 97% on room air. GENERAL: The patient is awake, alert, not otherwise in distress. HEENT: Extraocular muscles intact. No lymphadenopathy. Oropharyngeal mucosa is clear and dry. CARDIOVASCULAR: S1, S2. No rubs or gallops. Regular rate. PULMONARY: Clear to auscultation bilaterally. No rales, rhonchi, or wheezes. ABDOMEN: Nondistended, nontender. EXTREMITIES: No edema noted. ASSESSMENT AND PLAN: 1. End-stage renal disease, on dialysis. The patient currently on Saturday, Saturday, and Saturday session. 2. Right thigh AV graft bleeding. Hemostasis has been achieved. Repeat hemoglobin is pending. Vascular Surgery to evaluate aneurysmal dilatation to see if stable for discharge. 3. Hypertension, stable. Adjust medications as deemed appropriate. 4. Anemia of chronic kidney disease. Last hemoglobin 10.5. Epogen with hemodialysis if less than 10. 5. DVT prophylaxis with SCDs as the patient is a dialysis patient and is currently normocytopenic, low platelets of 73,000. Dariel Palomino MD DR: Malik JOB#: [id number] CC:
[2018-02-08] MEDS: Cyclopentolate 1% Opth Sol 2ml BOTH EYES SCH ×2 (14:08→21:00)
--- NOTE | 2018-02-08 16:15 | General Progress Note ---
Progress Note Progress Note Patient seen and examined Patent right thigh avf Right leg venous stasis edema with ulcerations with mild erythema Foot warm intact dp pulses Rec Ok for d/c Will do right thigh fistulogram as outpt Eliquis 2.5 bid Abx Leg compression dressing d/w pt and nurse d/w pmd Kieran Long MD Feb 08, 2018 16:15
--- NOTE | 2018-02-08 16:18 | Discharge Instructions ---
Discharge Instructions Discharge Instructions Services at Discharge: day care Diet: 2 GM sodium (low sodium), renal (80g protein, 2GM) Resume Normal Activity?: Yes Activity: light activity Follow Up Orders Keflex for 10 days f/u Vasc surgeon 1 week For Congestive Heart Failure Reminder Report to your physician any weight gain of 5 pounds or more in one week. Dariel Palomino MD Feb 08, 2018 16:18
[2018-02-08] MEDS ORDERED: Vancomycin 1 GM in D5W 275 ML IVPB SCH (17:00)
[2018-02-08] MEDS ORDERED: Cephalexin 250mg Cap ORAL SCH (18:00)
[2018-02-08] MEDS ORDERED: Eliquis 2.5mg tablet ORAL SCH (21:00)
[2018-02-08] MEDS ORDERED: D5 1/2NS 1000ml IV ONE (21:44)
[2018-02-08] MEDS ORDERED: NS 275ml ONE (21:44)
--- NOTE | 2018-02-10 13:09 | Diagnostic Imaging Report ---
APPROVED REPORT CPT Code: 76911 Present Symptoms Comments: BILATERAL LEGS PAIN. BILATERAL: Imaging reveals a patent deep venous system bilaterally. There is no evidence of thrombus within the femoral, popliteal or tibial segments. The greater saphenous veins are also within normal limits. Doppler indicates normal spontaneous flow within these segments.
--- NOTE | 2018-02-11 11:19 | Discharge Summary ---
Discharge Summary Discharge Summary _ DATE OF ADMISSION: 02/07/2018 DATE OF DISCHARGE: REASON FOR ADMISSION: 57 years old female with past medical history of hypertension, diabetes mellitus , end-stage renal disease on hemodialysis, anemia of chronic kidney disease, secondary hyperparathyroidism, had successful hemodialysis day prior to presentation to emergency department. Upon arriving home , patient noted that her right thigh graft started to bleed uncontrollably. Patient presented to emergency room for further evaluation and management. Pressure was applied , and hemostasis was achieved. Patient denied chest pain ,shortness of breath, nausea ,vomiting, diarrhea. Laboratory workup revealed mild leukopenia with WBC 4.2, hemoglobin 10.5, hematocrit 33.4 ,platelets 73. Stable electrolytes. BUN 11 creatinine 3.8, consistent with known history of end-stage renal disease . Albumin 2.4. Patient admitted with diagnoses of bleeding right thigh AV graft, end-stage renal disease on hemodialysis, hypertension, anemia of chronic kidney disease. CONSULTANTS: Vascular surgery dr Long [facility]SE: Patient admitted. Hemostasis was already achieved. The next day hemoglobin 9.8 hematocrit 32.2. WBC up to 4.8 and platelet count 85. Patient was on empiric antibiotic. Epogen with hemodialysis to be given if hemoglobin less than 10. DVT prophylaxis with SCD provided. Vacular surgery evaluation was requested . Vascular surgeon seen and evaluated patient. Right foot appeared warm with intact distal pulses. Patient had evidence of right leg venous stasis edema with ulceration and mild erythema. Surgeon recommended to continue on anticoagulation with Eliquis, continue antibiotic, and leg compression dressing. Right thigh fistulogram could be done as outpatient . Patient was stable for discharge. Due to rapid and unexpected improvement in patient 's condition ,patient was discharged in one day FINAL DIAGNOSES: Bleeding right thigh AV fistula- resolved Right leg venous stasis edema with ulceration and mild erythema End-stage renal disease,on hemodialysis Hypertension Anemia of chronic kidney disease DISCHARGE MEDICATIONS: See Medication Reconciliation list. DISCHARGE INSTRUCTIONS: Patient was discharged home Outpatient fistulogram right thigh will be arranged. Follow up with outpatient hemodialysis as scheduled. I have been assigned to dictate discharge summary for this account. I was not involved in the patient's management. Keli Sher NP Feb 11, 2018 11:19
--- NOTE | 2018-02-12 03:45 | Consultation ---
DATE OF CONSULTATION: 02/08/2018 VASCULAR SURGERY CONSULTATION CONSULTING PHYSICIAN: Kieran Long M.D. REFERRING PHYSICIANS: 1. Jhoan Hamm M.D. 2. Dariel Palomino M.D. REASON FOR EVALUATION: Right thigh AV shunt evaluation. HISTORY OF PRESENTING COMPLAINT: This is a 57-year-old female, who is well known to our Vascular Service. 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 The patient has a right thigh superficial femoral vein transposition arteriovenous fistula, which is being used at dialysis without difficulty. The patient currently has some bleeding on dialysis, which is now controlled. Vascular Surgery is consulted for further evaluation. The patient has no other complaints. PAST MEDICAL HISTORY: As above. 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 MEDICATIONS: See attached MAR. ALLERGIES: She has no known drug allergies. SOCIAL HISTORY: No history of smoking, drugs, or alcohol abuse. FAMILY HISTORY: Unremarkable. SYSTEMIC REVIEW: CARDIOVASCULAR: No history of chest pain or palpitations. PULMONARY: No cough or hemoptysis. GASTROINTESTINAL: No history of abdominal pain, constipation, or diarrhea. GENITOURINARY: No urinary symptoms. NEUROLOGIC: No history of strokes or seizures. PHYSICAL EXAMINATION: VITAL SIGNS: The patient is afebrile at 98.1 degrees, heart rate 75, blood pressure 137/68, respirations 20, and saturations 97% on room air. She has palpable radial pulses. Both arm shunts. No thrills. SKIN: Clear, dry, and intact. LUNGS: Clear to auscultation. HEART: Regular rate and rhythm. ABDOMEN: Soft and nontender. EXTREMITIES: She has palpable femoral pulses. Palpable right thigh superficial femoral vein transposition AV fistula. She has some mild aneurysmal changes. She does have right leg pretibial wound ulceration noted. Feet are warm with intact pedal Dopplers bilaterally. LABORATORY DATA: Revealed white count 73,000 and hemoglobin 10.5. IMPRESSION: 1. Patent right thigh superficial femoral vein transposition arteriovenous fistula with aneurysmal changes with intact skin, possible outflow stenosis. 2. Right leg pretibial wound ulceration with venous edema with mild erythema. 3. History of hypertension. 4. Anemia. 5. Diabetes mellitus. 6. Possible mental retardation. PLAN AND RECOMMENDATIONS: 1. The patient should have right leg wound care and compression dressing with antibiotics. 2. The patient is clear for discharge. The patient can have the right thigh AV shunt access for hemodialysis therapy. The patient will be scheduled for outpatient right thigh fistulogram to assess the shunt for need for intervention. The above was discussed at length with the patient's nurse. Kieran Long M.D. DR: FLORENCE JOB#: [id number] CC: Jhoan Hamm M.D.; Fax#: [phone] Dariel Palomino M.D.
== END 2018-02-08 21:45 | disposition home health service (06) | DRG 314 ==
LOC: EDBD 17:32 → EMR 20:00 → EDBEDREQ 20:13 → 2W 20:20 → EDBEDREQSVC 20:39 → EDBEDREQ 21:17 → OBSVTOIN 23:30 → 2E 02-08 11:51 → UNDODISIN 02-08 21:45 → 2E 02-08 23:01
DX: T82.838A Hemorrhage due to vascular prosthetic devices, implants and grafts, initial encounter (principal); N18.6 End stage renal disease; I12.0 Hypertensive chronic kidney disease with stage 5 chronic kidney disease or end stage renal disease; N25.81 Secondary hyperparathyroidism of renal origin; I83.019 Varicose veins of right lower extremity with ulcer of unspecified site; Z99.2 Dependence on renal dialysis; D63.1 Anemia in chronic kidney disease; E11.22 Type 2 diabetes mellitus with diabetic chronic kidney disease
CPT/HCPCS: 36415; 80048; 80053; 85007; 85025; 86850; 86900; 86901; 87081; 93005; 93970; 99285

== ENCOUNTER 2018-07-10 15:18 | Emergency (ER) | payer MEDICARE, MEDICAID ==
[~2018-07-10] VITALS: Ht 157.5 cm; Wt 108.9 kg
[2018-07-10 16:13] VITALS: BP 100/62
--- NOTE | 2018-07-10 16:53 | Emergency Room Report ---
History of Present Illness General Chief Complaint: Pain Present Illness HPI 57-year-old female presents to the emergency department complaining of 9 out of 10 in severity pain that has been progressive x months on the right 5th toe. pt. reports palpation increases pain. She denies trauma or fall. Denies itching. Pt. denies fevers, chills or swollen tender lymph nodes. Denies lesions/rashes elsewhere on the body. Denies new medications or body washes or creams. Denies swelling of the lips, tongue , throat or airway. Denies wheezing , or shortness of breath. Denies recent travel, recent illness or ill contacts. denies blisters, oral lesions, or sloughing of the skin Allergies: Coded Allergies: NO KNOWN DRUG ALLERGIES (Verified Allergy, Unknown, 10/01/13) Patient History Past Medical History: see triage record Past Surgical History: none Pertinent Family History: none Last Menstrual Period: menopause Now: No Reviewed Nursing Documentation: PMH: Agreed; PSxH: Agreed Nursing Documentation-PMH Hx Cardiac Problems: Yes Hx Hypertension: Yes Hx Pacemaker: No Hx Asthma: Yes Hx COPD: No Hx Diabetes: Yes Hx Cancer: No Hx Gastrointestinal Problems: No Hx Dialysis: Yes - M-W-F Hx Neurological Problems: No Hx Cerebrovascular Accident: No Hx Transient Ischemic Attacks: Yes Hx Seizures: No Hx Concentration Difficulty: Yes Hx Neurologic Surgery: No Hx Brain Shunt: No Review of Systems All Other Systems: negative except mentioned in HPI Physical Exam Vital Signs Date Time Temp Pulse Resp B/P (MAP) Pulse Ox O2 Delivery O2 Flow Rate FiO2 07/10/18 15:55 98.4 85 16 94 Room Air 07/10/18 16:13 100/62 Sp02 EP Interpretation: reviewed, normal General Appearance: no apparent distress, alert, GCS 15, non-toxic Head: normocephalic, atraumatic Eyes: bilateral eye normal inspection, bilateral eye PERRL ENT: hearing grossly normal, normal voice Neck: full range of motion Respiratory: lungs clear, normal breath sounds, speaking full sentences Cardiovascular #1: regular rate, rhythm, normal capillary refill Musculoskeletal: back normal, gait/station normal, normal range of motion, non- tender Neurologic: alert, oriented x3, responsive, motor strength/tone normal, sensory intact, speech normal, grossly normal Psychiatric: judgement/insight normal Skin: normal color, warm/dry, well hydrated, other - 0.5cm non erythematous corn on the lateral aspect of the right 5th toe. no warmth, no d/c, no lesions elsewhere, no bony tenderness. Lymphatic: no adenopathy Medical Decision Making PA Attestation Dr. Troy is my supervising Physician whom patient management has been discussed with. Diagnostic Impression: Primary Impression: Amoret of toe ER Course She has reported productive cough with subjective fevers and chills 4 days. She states she was recently hospitalized as well and she did not have any symptoms at that time. Patient reports exertion exacerbates her symptoms. Denies CP, Palpitations, LOC, AMS, dizziness, Changes in Vision, Sensation, paresthesias, or a sudden severe headache. Ddx considered but are not limited to corn/callous, fracture,cellulitis, abscess , necrotizing fasciitis, insect bite. Vital signs: are WNL, pt. is afebrile H&PE are most consistent with non infected corn of the right 5th toe ORDERS: none required at this time, the diagnosis is clinical ED INTERVENTIONS: Tylenol PO -I do not identify an emergent condition at this time. With current presentation , pt. is stable for close outpatient follow up and conservative treatment. D/ w pt. to return promptly to ED with worsening or new symptoms.- Pt. verbalizes' understanding and agreement with proposed treatment plan. DISCHARGE: At this time pt. is stable for d/c to home. Will provide printed patient care instructions, and any necessary prescriptions. Care plan and follow up instructions have been discussed with the patient prior to discharge. Last Vital Signs Date Time Temp Pulse Resp B/P (MAP) Pulse Ox O2 Delivery O2 Flow Rate FiO2 07/10/18 16:13 98.4 16 100/62 94 Room Air 07/10/18 15:55 85 Disposition: HOME, SELF-CARE Condition: Stable Scripts Acetaminophen* (TYLENOL EXTRA STRENGTH*) 500 Mg Tablet 500 MG ORAL Q6H, #20 TAB 0 Refills Prov: Nugyen Buchanan 07/10/18 Salicylic Acid (Amoret & Callus Remover) 15 Ml Liquid 1 APPLIC TP DAILY, #15 ML Prov: Nguyen Buchanan 07/10/18 Referrals: NOT CHOSEN IPA/MD,REFERRING (PCP) Patient Instructions: Corns and Calluses Additional Instructions: Take medications as directed. Follow up with a Primary Care Provider in 3-5 days, even if your symptoms have resolved. MUSEUM REGISTRAR EVAL --Please review list of primary care clinics, if you do not already have a primary care provider Return sooner to ED if new symptoms occur, or current symptoms become worse. - Please note that this Emergency Department Report was dictated using [employer] helper technology software, occasionally this can lead to erroneous entry secondary to interpretation by the dictation equipment. Nguyen Buchanan July 10, 2018 16:53
[2018-07-10] MEDS ORDERED: TYLENOL EXTRA500 MG ORAL (16:57)
[2018-07-10] MEDS ORDERED: [UNRECOGNIZED DRUG - SUPPLY] TP (16:57)
--- NOTE | 2018-07-10 17:10 | NUR ---
ER DISCHARGE NOTE: Patient is cleared to be discharged per ERMD, pt is aox4, on room air, with stable vital signs. pt was given dc and prescription instructions, pt was able to verbalize understanding, pt is able to ambulate with steady gait. pt took all belongings.
[2018-07-10 18:41] VITALS: BP 100/62
[2018-09-08] MEDS ORDERED: UNOBMED (16:18)
== END 2018-07-10 17:20 | disposition home or self-care (01) ==
LOC: EMR 16:13
DX: L84 Corns and callosities (principal); I10 Essential (primary) hypertension; J45.909 Unspecified asthma, uncomplicated; E11.9 Type 2 diabetes mellitus without complications
CPT/HCPCS: 99281

== ENCOUNTER 2018-09-08 16:20 | Emergency (ER) | payer MEDICARE, MEDICAID ==
[~2018-09-08] VITALS: Ht 157.5 cm; Wt 108.9 kg
[~2018-09-08 16:20] MED LIST changes: +[UNRECOGNIZED DRUG - SUPPLY] TP
--- NOTE | 2018-09-08 16:28 | NUR ---
ED Nurse Note: arrives via [facility] for c/o bleeding right thigh shunt after dialysis today. states she returned home approx 1130am. arrive
--- NOTE | 2018-09-08 16:29 | NUR ---
ED Nurse Note: pt noted to be eval by . not active bleeding from shunt site with dressing placed by [facility]. good cms distally. pt denies dyspnea, cp, n/v.
--- NOTE | 2018-09-08 16:29 | Emergency Room Report ---
History of Present Illness General Chief Complaint: General Complaint Source: Patient, EMS Present Illness HPI Patient is a 57-year-old female brought in by EMS after increased bleeding from her dialysis access to her right thigh. Patient had recent dialysis this morning. She finished dialysis approximately 10 AM. Patient had been having some persistent bleeding after dialysis.She denies any other locations of bleeding. She had prior history of end-stage renal disease. Allergies: Coded Allergies: No Known Allergies (Unverified , 09/08/18) Patient History Past Medical History: see triage record Now: No Reviewed Nursing Documentation: PMH: Agreed; PSxH: Agreed Nursing Documentation-PMH Past Medical History: No History, Except For Hx Cardiac Problems: Yes Hx Hypertension: Yes Hx Pacemaker: No Hx Asthma: Yes Hx COPD: No Hx Diabetes: Yes Hx Cancer: No Hx Gastrointestinal Problems: No Hx Dialysis: Yes - MWF Hx Neurological Problems: No Hx Cerebrovascular Accident: No Hx Transient Ischemic Attacks: Yes Hx Seizures: No Hx Concentration Difficulty: Yes Hx Neurologic Surgery: No Hx Brain Shunt: No Review of Systems All Other Systems: negative except mentioned in HPI Physical Exam Vital Signs Date Time Temp Pulse Resp B/P (MAP) Pulse Ox O2 Delivery O2 Flow Rate FiO2 09/08/18 16:16 97.9 84 18 107/57 (74) 97 Room Air General Appearance: no apparent distress, alert, GCS 15, Chronically Ill ENT: normal ENT inspection Neck: normal inspection, full range of motion, supple Respiratory: normal inspection, lungs clear Cardiovascular #1: normal inspection Musculoskeletal: other - right lower extremity trace bleeding from dialysis access Medical Decision Making Diagnostic Impression: Primary Impression: ESRD (end stage renal disease) on dialysis Additional Impressions: Thrombocytopenia Bleeding from dialysis shunt ER Course Patient is a 57-year-old female presented after increased bleeding. Differential diagnosis include was not limited to anemia, thrombus cytopenia, coagulopathy among others. Laboratory testing was ordered due to patient's recent bleeding. she was started on IV fluids. patient's dialysis access had spontaneous resolution of bleeding with a light pressure dressing. 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 Patient will be discharged home with family member. Labs Test 09/08/18 17:15 White Blood Count 3.3 K/UL (4.8-10.8) Red Blood Count 3.64 M/UL (4.20-5.40) Hemoglobin 10.2 G/DL (12.0-16.0) Hematocrit 34.2 % (37.0-47.0) Mean Corpuscular Volume 94 FL (80-99) Mean Corpuscular Hemoglobin 27.9 PG (27.0-31.0) Mean Corpuscular Hemoglobin Concent 29.7 G/DL (32.0-36.0) Red Cell Distribution Width 20.5 % (11.6-14.8) Platelet Count 69 K/UL (150-450) Mean Platelet Volume 6.2 FL (6.5-10.1) Neutrophils (%) (Auto) % (45.0-75.0) Lymphocytes (%) (Auto) % (20.0-45.0) Monocytes (%) (Auto) % (1.0-10.0) Eosinophils (%) (Auto) % (0.0-3.0) Basophils (%) (Auto) % (0.0-2.0) Differential Total Cells Counted 100 Neutrophils % (Manual) 59 % (45-75) Lymphocytes % (Manual) 30 % (20-45) Monocytes % (Manual) 7 % (1-10) Eosinophils % (Manual) 3 % (0-3) Basophils % (Manual) 1 % (0-2) Band Neutrophils 0 % (0-8) Platelet Estimate Decreased Platelet Morphology Normal Hypochromasia 1+ Anisocytosis 1+ Prothrombin Time 11.7 SEC (9.30-11.50) Prothromb Time International Ratio 1.1 (0.9-1.1) Activated Partial Thromboplast Time 28 SEC (23-33) Last Vital Signs Date Time Temp Pulse Resp B/P (MAP) Pulse Ox O2 Delivery O2 Flow Rate FiO2 09/08/18 16:16 97.9 84 18 107/57 (74) 97 Room Air Status: improved Disposition: HOME, SELF-CARE Condition: Stable Haresh Mendoza MD Sep 08, 2018 16:29
--- NOTE | 2018-09-08 16:38 | NUR ---
ED Nurse Note: dressing applied to left upper thigh fistula, no active bleeding. tolerates well. no other orders. pt desires to be dc home
[2018-09-08 16:54] VITALS: BP 107/57
--- NOTE | 2018-09-08 16:55 | NUR ---
ED Nurse Note: pt with no active bleeding from fistula now. mom at bs. pt with wax removed by md form bilateral ears.
--- NOTE | 2018-09-08 17:36 | NUR ---
ED Nurse Note: pt mom leaving and will be back to transport pt home. mom-Krista cell # [phone]
[2018-09-08 17:37] VITALS: BP 95/56
--- NOTE | 2018-09-08 17:38 | NUR ---
ED Nurse Note: pt able to weight bear, no bleeding at dialysis site
[2018-09-08 17:49] LABS: HEMATOCRIT 34.2 % (37.0-47.0); HEMOGLOBIN 10.2 G/DL (12.0-16.0); INR 1.1 (0.9-1.1); MEAN CORPUSCULAR VOLUME 94 FL (80-99); PLATELET COUNT 69 K/UL (150-450); RED BLOOD COUNT 3.64 M/UL (4.20-5.40); RED CELL DISTRIBUTION WIDTH 20.5 % (11.6-14.8); WHITE BLOOD COUNT 3.3 K/UL (4.8-10.8)
[2018-09-08 19:00] VITALS: BP 96/55
--- NOTE | 2018-09-08 19:01 | NUR ---
ED Nurse Note: pt without bleeding from shunt site. awaiting further dispo. denies c/o
[2018-09-08] MEDS ORDERED: NS 250 ML IVPB ONE (19:15)
--- NOTE | 2018-09-08 19:23 | NUR ---
ED Nurse Note: Patient is resting comfortably, fliud bolus running, family member at bedside.
[2018-09-08 19:24] VITALS: BP 106/75
[2018-09-08 19:41] VITALS: BP 117/72
--- NOTE | 2018-09-08 19:41 | NUR ---
ED Nurse Note: Patient cleared for discharge, no s/s of acute distress. blood pressure increased upon fluid administration. patient IV removed, ID band removed. Patient verbalized understanding of discharge instructions and departed with all belongings accompanied by her mother.
== END 2018-09-08 19:41 | disposition home or self-care (01) ==
LOC: EDBD 16:20 → EMR 17:31
DX: T82.838A Hemorrhage due to vascular prosthetic devices, implants and grafts, initial encounter (principal); E11.22 Type 2 diabetes mellitus with diabetic chronic kidney disease; I12.0 Hypertensive chronic kidney disease with stage 5 chronic kidney disease or end stage renal disease; N18.6 End stage renal disease; Z99.2 Dependence on renal dialysis; D69.6 Thrombocytopenia, unspecified; Z86.73 Personal history of transient ischemic attack (TIA), and cerebral infarction without residual deficits
CPT/HCPCS: 36415; 85007; 85025; 85610; 85730; 99283